=== PATIENT | female | born 1960 | race Caucasian/White ===

== ENCOUNTER 2016-09-01 19:42 | Emergency (ER) | payer OTHER ==
[2016-09-01 20:13] VITALS: TEMP 98.1
--- NOTE | 2016-09-01 21:00 | ED ---
Wound/Laceration HPI - General Chief Complaint: Wound/Laceration Stated Complaint: Finger Laceration Time Seen by Provider: 09/01/16 20:44 Source: patient, RN notes reviewed Mode of arrival: ambulatory Limitations: no limitations - History of Present Illness Initial Comments: 56-year-old female presents emergency department tingling laceration to her right hand index finger. Patient states that she was trying to take hummingbird feeder part states the glass broke. Patient states her tetanus is up-to-date within last 5 years. Patient denies any paresthesias. Patient has good range of motion. - Related Data Home Medications Medication Instructions Recorded Confirmed Estropipate [Ogen 0.625] 0.75 mg PO DAILY 08/31/14 08/31/14 Fexofenadine HCl [Margaret Allergy] 30 mg PO DAILY 08/31/14 08/31/14 Previous Rx's Medication Instructions Recorded Dexamethasone 0.75 mg PO DIRECTED #12 tablet 08/31/14 Ibuprofen [Motrin] 800 mg PO Q6HR PRN #30 tab 08/31/14 Allergies Allergy/AdvReac Type Severity Reaction Status Date / Time No Known Allergies Allergy Verified 08/31/14 20:41 Review of Systems ROS Statement: Those systems with pertinent positive or pertinent negative responses have been documented in the HPI. ROS Other: All systems not noted in ROS Statement are negative. Past Medical History Past Medical History: No Reported History History of Any Multi-Drug Resistant Organisms: None Reported Past Surgical History: Hysterectomy, Orthopedic Surgery Past Psychological History: No Psychological Hx Reported Smoking Status: Never smoker Past Alcohol Use History: Occasional Past Drug Use History: None Reported General Exam Limitations: no limitations General appearance: alert, in no apparent distress Head exam: Present: atraumatic, normocephalic, normal inspection Respiratory exam: Present: normal lung sounds bilaterally. Absent: respiratory distress, wheezes, rales, rhonchi, stridor Cardiovascular Exam: Present: regular rate, normal rhythm, normal heart sounds. Absent: systolic murmur, diastolic murmur, rubs, gallop, clicks Extremities exam: Present: other (Right hand second digit there is a 2 cm laceration on the volar aspect of the index finger neurovascular intact full range of motion) Skin exam: Present: warm, dry Course Vital Signs 09/01/16 20:10 Temperature 98.1 F Pulse Rate 72 Respiratory 16 Rate Blood Pressure 170/84 O2 Sat by Pulse 97 Oximetry Procedures - Laceration Laceration #1 Indication: laceration Site: hand (Right hand second digit) Size (cm): 2 Description: linear Depth: simple, single layer Anesthetic Used: lidocaine 1%, without epi Anesthesia Technique: local infiltration Amount (mls): 4 Pre-repair: wound explored, irrigated extensively, deep structures intact Type of Sutures: nylon Size of Sutures: 4-0 Number of Sutures: 5 Technique: simple, interrupted Patient Tolerated Procedure: well, no complications Medical Decision Making - Medical Decision Making 56-year-old female Finger laceration. Patient was sutured closed patient we discharge. Disposition Clinical Impression: Finger laceration Disposition: HOME SELF-CARE Condition: Stable Instructions: Care For Your Stitches (ED), Finger Laceration (ED) Additional Instructions: Have sutures removed in 10 daysPlease return to the Emergency Department if symptoms worsen or any other concerns. Referrals: Mohinder Weber DO [Primary Care Provider] - 1-2 days Time of Disposition: 21:00
--- NOTE | 2016-09-01 21:30 | XR ---
EXAMINATION TYPE: XR finger RT DATE OF EXAM: 09/01/2016 COMPARISON: NONE HISTORY: Soft tissue laceration of the second digit TECHNIQUE: 3 views of the right second digit were obtained. FINDINGS: Punctate focus of subcutaneous emphysema is seen at the proximal interphalangeal joint at t he volar aspect of the subcutaneous soft tissues of the second digit. There is no evidence of cortica l irregularity, acute fracture, or dislocation. No radiopaque foreign body is appreciated. Soft tissu e swelling is seen at the volar aspect of the proximal phalanx and adjacent to the proximal interphal angeal joint. IMPRESSION: 1. No evidence of cortical irregularity, fracture, or dislocation. 2. Punctate focus of subcutaneous emphysema correlating to the patient's history of laceration near t he proximal interphalangeal joint of the second digit with adjacent soft tissue swelling.
[2016-09-01 21:32] VITALS: BP 136/83; PULSE 71; RESP 18
== END 2016-09-01 21:32 | disposition home or self-care (01) ==
LOC: EC 19:42
DX: S61.210A Laceration without foreign body of right index finger without damage to nail, initial encounter (principal); Z79.899 Other long term (current) drug therapy; W25.XXXA Contact with sharp glass, initial encounter; Y93.89 Activity, other specified
CPT/HCPCS: 12001; 99283

== ENCOUNTER 2017-11-15 13:46 | Emergency (ER) | payer OTHER ==
--- NOTE | 2017-11-15 14:12 | ED ---
General Adult HPI - General Chief complaint: Needlestick/Exposure Stated complaint: exposure-[facility] Time Seen by Provider: 11/15/17 13:59 Source: RN notes reviewed - History of Present Illness Initial comments: 57-year-old female no past medical history presents today for chief complaint of needle stick. 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 She was vacuuming when she saw a lancet on the floor, she bent over to fruit picker lancet with gloves on and was poked, realizing it had been used. It poked through her glove at the tip of the right index finger. Pt contacted her employer who instructed her to come to the emergency department for post exposure testing. pt states that the patient has no known history of infectious disease. Patient denies any recent fever, chills , shortness of breath, chest pain, back pain, abdominal pain, nausea or vomiting , numbness or tingling, dysuria or hematuria, constipation or diarrhea, headaches or visual changes, or any other complaints. - Related Data Home Medications Medication Instructions Recorded Confirmed Estropipate [Ogen 0.625] 0.75 mg PO DAILY 08/31/14 11/15/17 Fexofenadine HCl [Margaret Allergy] 30 mg PO DAILY 08/31/14 11/15/17 Allergies Allergy/AdvReac Type Severity Reaction Status Date / Time No Known Allergies Allergy Verified 11/15/17 15:46 Review of Systems ROS Statement: Those systems with pertinent positive or pertinent negative responses have been documented in the HPI. ROS Other: All systems not noted in ROS Statement are negative. Constitutional: Denies: fever, chills, night sweats ENT: Denies: ear pain, throat pain Respiratory: Denies: cough, dyspnea Cardiovascular: Denies: chest pain, palpitations, dyspnea on exertion Endocrine: Denies: fatigue Gastrointestinal: Denies: abdominal pain, nausea, vomiting Genitourinary: Denies: urgency, dysuria Musculoskeletal: Denies: back pain Skin: Reports: as per HPI. Denies: rash, lesions Past Medical History Past Medical History: No Reported History History of Any Multi-Drug Resistant Organisms: None Reported Past Surgical History: Hysterectomy, Orthopedic Surgery Past Psychological History: No Psychological Hx Reported Smoking Status: Never smoker Past Alcohol Use History: Occasional Past Drug Use History: None Reported General Exam - General Exam Comments Initial Comments: General: The patient is awake and alert, in no distress, and does not appear acutely ill. Eye: Pupils are equal, round and reactive to light, extra-ocular movements are intact. No nystagmus. There is normal conjunctiva bilaterally. No signs of icterus. Ears, nose, mouth and throat: There are moist mucous membranes and no oral lesions. Neck: The neck is supple, there is no tenderness or JVD. Cardiovascular: There is a regular rate and rhythm. No murmur, rub or gallop is appreciated. Respiratory: Lungs are clear to auscultation, respirations are non-labored, breath sounds are equal. No wheezes, stridor, rales, or rhonchi. Gastrointestinal: Soft, non-distended, non-tender abdomen without masses or organomegaly noted. There is no rebound or guarding present. No CVA tenderness. Bowel sounds are unremarkable. Musculoskeletal: Normal ROM, no tenderness. Strength 5/5. Sensation intact. Pulses equal bilaterally 2+. Neurological: A&O x 3. CN II-XII intact, There are no obvious motor or sensory deficits. Coordination appears grossly intact. Speech is normal. Skin: Skin is warm and dry and no rashes. Small puncture right index finger, palmar surface. Psychiatric: Cooperative, appropriate mood & affect, normal judgment. Course Vital Signs 11/15/17 14:01 Temperature 97.1 F L Pulse Rate 84 Respiratory 18 Rate Blood Pressure 143/81 O2 Sat by Pulse 98 Oximetry Medical Decision Making - Medical Decision Making Exposure paperwork filled out by pt and nursing staff. Pt declined ppx treatment at this time. Pt blood was drawn for Hepatitis C, Hepatitis B and HIV. Pt was discharged in stable condition. Disposition Clinical Impression: Needle stick injury of finger Disposition: HOME SELF-CARE Condition: Good Instructions: Needle Stick Injuries (ED) Additional Instructions: Please follow-up with family doctor in the next 2 days of symptoms. Please have source come in for testing if possible Is patient prescribed a controlled substance at d/c from ED?: No Referrals: Mohinder Weber DO [Primary Care Provider] - 1-2 days Time of Disposition: 15:22
[2017-11-15 14:18] VITALS: BP 143/81; PULSE 84; RESP 18; TEMP 97.1
[2017-11-15 20:23] LABS: HIV AB P24 Non-Reactive (Non-Reactive); HIV P24 AG Non-Reactive (Non-Reactive)
[2017-11-15 20:41] LABS: Hepatitis B Surface AB- Quant 3.5 mIU/mL; Hepatitis C IgG Antibody Non-Reactive (Non-Reactive)
== END 2017-11-15 15:46 | disposition home or self-care (01) ==
LOC: EC 13:46
DX: S61.230A Puncture wound without foreign body of right index finger without damage to nail, initial encounter (principal); Z79.899 Other long term (current) drug therapy; Z98.890 Other specified postprocedural states; W46.1XXA Contact with contaminated hypodermic needle, initial encounter; Y93.89 Activity, other specified; Y92.009 Unspecified place in unspecified non-institutional (private) residence as the place of occurrence of the external cause; Y99.0 Civilian activity done for income or pay
CPT/HCPCS: 36415; 86706; 86803; 87390; 99282

== ENCOUNTER → 2018-06-30 | Outpatient (CLI) | payer OTHER ==
[2018-06-30 08:39] LABS: Basophils # (A) 0.1 k/uL (0-0.2); Basophils % (A) 3 %; Eosinophils # (A) 0.3 k/uL (0-0.7); Eosinophils % (A) 8 %; HCT 43.1 % (34.0-46.0); HGB 13.8 gm/dL (11.4-16.0); Lymphocytes % (A) 23 %; MCH 29.1 pg (25.0-35.0); MCHC 31.9 g/dL (31.0-37.0); MCV 91.2 fL (80.0-100.0); Mean Platelet Volume 6.5; Monocytes # (A) 0.3 k/uL (0-1.0); Monocytes % (A) 6 %; Neutrophils # (A) 2.5 k/uL (1.3-7.7); Neutrophils % (A) 58 %; Platelet Count 279 k/uL (150-450); RBC 4.73 m/uL (3.80-5.40); RDW 12.9 % (11.5-15.5); WBC 4.3 k/uL (3.8-10.6)
== END ==
LOC: LABPAT 08:04
PROVIDERS: ATTEND Obstetrics & Gynecology
DX: Z01.818 Encounter for other preprocedural examination (principal); Z01.812 Encounter for preprocedural laboratory examination; Q52.5 Fusion of labia
CPT/HCPCS: 85025; 93005

== ENCOUNTER 2018-07-09 07:57 | Day surgery (SDC) | payer OTHER ==
[2018-07-03 13:01] VITALS: BMI 22.3
--- NOTE | 2018-07-04 11:50 | HP ---
HISTORY AND PHYSICAL H and P for surgery on Monday, July 09, 2018. This is a 58-year-old white female 1, para 1, who presented initially for the complaint of no opening per vagina. She was diagnosed with complete labial fusion, and was started on Estrace cream every night to the perineal body. The patient states since that time, the area is more comfortable, she has no bleeding and no pain. She, however, still does not notice any opening of the vaginal area whatsoever. This problem has been persisting for over a year. REVIEW OF SYSTEMS: Review of systems is otherwise negative. PAST MEDICAL HISTORY: Past medical history is negative. PAST SURGICAL HISTORY: Endometriosis ablation in the past, tubal ligation, section, appendectomy. CURRENT MEDICATIONS: 1. Caltrate with vitamin D daily. 2. Estrace cream vaginally every night. 3. Fish oil and magnesium along with multivitamin and vitamin E supplement daily. ALLERGIES: Allergies include NEOSPORIN, allergic reaction not noted. FAMILY HISTORY: Family history is significant for diabetes and heart issues. REPRODUCTIVE HISTORY: section in 1986, uncomplicated. SOCIAL HISTORY: Patient is a former tobacco smoker in the 1980s. She drinks 3 to 4 cups of coffee a day, social alcohol use only. PHYSICAL EXAMINATION: On exam, this is a pleasant white female who is 5 feet 2 inches, 125 pounds, blood pressure 120/76, BMI 125. The general physical exam is within normal limits. Neck is soft and supple, no thyromegaly, no cervical lymphadenopathy, good dentition. Breasts are bilaterally symmetric to inspection with no skin dimpling, nipple discharge, axillary adenopathy, or discernible lesions or masses. Chest is clear to auscultation in all major anteriorly and posteriorly. Cardiac exam reveals regular rate and rhythm with no murmur, click, or rub. Abdomen is scaphoid, no organosplenomegaly, no CVA tenderness. Active bowel sounds. On pelvic examination, the external genitalia appear normal for age in terms of the labia majora. However, the labia minora are completely fused in the midline with no visual or palpable opening noted. The clitoral madrigal appears normal. The rectal exam reveals good sphincter tone, no foreign bodies or hemorrhoids. There is no unusual inguinal lymphadenopathy. The cervix is unable to be visualized. Rectal exam reveals normal midline uterus, negative adnexa bilaterally. Skin exam reveals no rashes or lesions otherwise. The neurologic and psychiatric examinations are found to be within normal limits. IMPRESSION: Atrophic vaginitis with complete labial fusion. PLAN: Patient has been using the Estrace cream now for several months. The skin appears softer and less uncomfortable, however, there is no opening either to palpation or visualization. We would therefore proceed with surgical opening of the labia and separation. This may be performed with electrocautery on the cutting mode, or potentially with digital separation utilizing examination under anesthesia. All questions have been answered. All risks of surgery including bleeding, infection, postoperative dyspareunia are all discussed. Second opinion is offered and declined. MMODL / IJN: [id number] /
[~2018-07-09 07:57] MED LIST: DEXAMETHASONE SOD PHOSPHATE 10 MG/ML 1 ML VIAL IV ONE; HYDROmorphone 0.5 MG/0.5 ML SYRINGE IVP PRN; LACTATED RINGERS 1,000 ML IV SCH; MIDAZOLAM 2 MG/2 ML VIAL IV PRN; ONDANSETRON 4 MG/2 ML VIAL IVP ONE; SCOPOLAMINE 1.5MG/72HR PATCH TRANSDERM ONE
[2018-07-09] MEDS ORDERED: LACTATED RINGERS 1,000 ML IV ONE (08:13)
[2018-07-09] MEDS ORDERED: LIDOCAINE 1% 20 ML VIAL (10MG/ML) FOR IV START INTRADERMA ONE (08:14)
[2018-07-09] MEDS ORDERED: fentaNYL (PF) 50 MCG/ML 2 ML AMP ONE (09:34)
[2018-07-09] MEDS ORDERED: MIDAZOLAM 2 MG/2 ML VIAL ONE (09:34)
[2018-07-09] MEDS ORDERED: LIDOCAINE 1% INJ 10MG/ML (20 ML MDV) ONE (09:34)
[2018-07-09] MEDS ORDERED: PROPOFOL 10 MG/ML 20 ML VIAL IV ONE (09:34)
[2018-07-09] MEDS ORDERED: SILVER sulfADIAZINE Cream 400 GM 1 APPLIC APPLIC TOPICAL ONE (09:57)
--- NOTE | 2018-07-09 10:02 | P.OP ---
Date of Procedure: 07/09/18 Preoperative Diagnosis: Complete labial fusion Postoperative Diagnosis: Same, resolved Procedure(s) Performed: Separation complete labial fusion (perineoplasty) Anesthesia: [id number] Surgeon: Deborah Casarez Estimated Blood Loss (ml): 0 IV fluids (ml): 300 Urine output (ml): 400 Pathology: none sent Condition: stable Disposition: PACU Description of Procedure: Patient is brought to the operating suite where a general anesthetic is admi nistered. No antibiotics are deemed necessary. The appropriate timeout is performed to assure proper patient and procedural identification. The patient is placed in dorsal lithotomy position. The perineal body is prepped and draped in usual sterile fashion. Sponge rolled finger is IUs bilaterally. Gentle traction is used just beneath the clitoris and a small opening of the complete fusion is noted. With gentle symmetric traction the separation is "open" from 12:00 to 6:00. At this time the urethra is visualized, the bladder is drained for approximately 400 mL of clear yellow urine. Examination under anesthesia now reveals good vaginal length, good introital opening of approximately 2-1/2 cm. The edges of the atrophic thin skin are then bathed with Silvadene cream and a. Pad is placed. All sponge needle and enhancement counts are correct. Patient is brought back to the recovery room in very good condition with stable vital signs including blood pressure 138/71, pulse 62, 98% O2 saturation. She will continue the use of estrogen cream at home, and see me in the office in 2 weeks.
[2018-07-09 10:19] VITALS: TEMP 97.6
[2018-07-09 10:32] VITALS: RESP 16
[2018-07-09 11:21] VITALS: PULSE 65
[2018-07-09 11:22] VITALS: BP 145/89
== END 2018-07-09 11:43 | disposition home or self-care (01) ==
LOC: OR 07:57
PROVIDERS: ATTEND Obstetrics & Gynecology
DX: Q52.5 Fusion of labia (principal); N95.2 Postmenopausal atrophic vaginitis; Z83.3 Family history of diabetes mellitus; Z82.49 Family history of ischemic heart disease and other diseases of the circulatory system; Z87.891 Personal history of nicotine dependence
CPT/HCPCS: 56810; J2250; J1100; J2405; J2001; J3010; J2704

== ENCOUNTER → 2019-02-27 | Outpatient (CLI) | payer OTHER ==
--- NOTE | 2019-02-27 08:55 | CT ---
EXAMINATION TYPE: CT sinus wo con DATE OF EXAM: 02/27/2019 COMPARISON: None HISTORY: Headache, acute sinusitis CT DLP: 615.9 mGycm CONTRAST: None The paranasal sinuses are examined in the axial plane at 2 mm thick sections. Reconstructed images i n the coronal plane were obtained. There is dental amalgam scatter artifact There is a retention cyst within the posterior right maxillary sinus. Partial septation is at the inf erior right maxillary sinus. The ethmoid air cells are clear. The sphenoid sinuses are clear. The frontal sinuses are clear. The septum is evaluated. There is septal deviation to the left. There is an ostea within the anterio r septum. Prior uncinectomies are present. Partial ethmoidectomies are present. IMPRESSIONS: 1. Left septal deviation. 2. Postsurgical changes. 3. Small retention cyst posterior inferior right maxillary sinus.
--- NOTE | 2019-02-27 08:57 | CT ---
EXAMINATION TYPE: CT brain wo con DATE OF EXAM: 02/27/2019 COMPARISON: 11/10/2011 INDICATION: Headache DLP: 1670.1 mGycm, Automated exposure control for dose reduction was used. CONTRAST: None CT of the brain is performed utilizing 3 mm thick sections through the posterior fossa and 3 mm thick sections through the remaining calvarium. Study is performed within 24 hours of arrival to the hosp ital. No abnormal hyperdensity is present to suggest an acute intracranial hemorrhage. No mass lesion is evident. No acute infarcts are evident. Ventricles and sulci are appropriate for the patient age. Paranasal sinuses and mastoid air cells within the [id number] are clear. IMPRESSIONS: 1. No acute intracranial process.
== END | disposition home or self-care (01) ==
LOC: RADCTMAIN 07:45
PROVIDERS: ATTEND Physician Assistant
DX: J34.2 Deviated nasal septum (principal); J34.1 Cyst and mucocele of nose and nasal sinus; R51 Headache; Z98.890 Other specified postprocedural states
CPT/HCPCS: 70450; 70486

== ENCOUNTER 2020-06-16 12:44 | Emergency (ER) | payer OTHER ==
[2020-06-16] MEDS ORDERED: DIAZEPAM 5 MG/ML 2 ML INJ IM STA (13:35)
--- NOTE | 2020-06-16 13:37 | ED ---
Back Pain HPI - General Chief Complaint: Back Pain/Injury Stated Complaint: [facility] - back pain Time Seen by Provider: 06/16/20 13:05 Source: patient, RN notes reviewed Mode of arrival: ambulatory Limitations: no limitations - History of Present Illness Initial Comments: This a 59-year-old female presents emergency Department with chief complaint of back strain. 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 She states her she felt her back tighten up states she has pain with any movement she has no chest pain or shortness of breath. He states that she's had some back issues in the past states is usually her low back. No abdominal pain no bowel bladder incontinence or retention no saddle anesthesias. - Related Data Home Medications Medication Instructions Recorded Confirmed Estradiol Cream [Estrace Cream 1 applic VAGINAL SUWE 07/03/18 06/16/20 0.01%] Atorvastatin [Lipitor] 10 mg PO HS 06/16/20 06/16/20 Samir/D3/Mag11/Zinc/Stain Remover/Rafa/Bor 1 tab PO DAILY 06/16/20 06/16/20 [Caltrate 600+D Plus Tablet] Cetirizine HCl [Zyrtec] 10 mg PO HS 06/16/20 06/16/20 Magnesium 200 mg PO DAILY 06/16/20 06/16/20 [place]-3 Fatty Acids/Fish Oil [Fish 1 cap PO DAILY 06/16/20 06/16/20 Oil 1,000 mg Softgel] Vitamin E 400 unit PO DAILY 06/16/20 06/16/20 Previous Rx's Medication Instructions Recorded Ibuprofen [Motrin] 600 mg PO Q8HR PRN #20 tab 06/16/20 methocarbamoL [Robaxin] 500 mg PO TID PRN #15 tab 06/16/20 Allergies Allergy/AdvReac Type Severity Reaction Status Date / Time bacitracin Allergy Swelling Verified 06/16/20 13:52 [From Neosporin ([id number])] cephalexin [From Keflex] Allergy Rash/Hives Verified 06/16/20 13:52 neomycin Allergy Swelling Verified 06/16/20 13:52 [From Neosporin ([id number])] polymyxin B Allergy Swelling Verified 06/16/20 13:52 [From Neosporin ([id number])] Review of Systems ROS Statement: Those systems with pertinent positive or pertinent negative responses have been documented in the HPI. ROS Other: All systems not noted in ROS Statement are negative. Past Medical History Past Medical History: No Reported History History of Any Multi-Drug Resistant Organisms: None Reported Past Surgical History: Hysterectomy, Orthopedic Surgery Additional Past Surgical History / Comment(s): right finger surgery Past Psychological History: No Psychological Hx Reported Smoking Status: Never smoker Past Alcohol Use History: Occasional Past Drug Use History: None Reported General Exam Limitations: no limitations General appearance: alert, in no apparent distress Head exam: Present: atraumatic, normocephalic, normal inspection ENT exam: Present: normal exam, normal oropharynx, mucous membranes moist, TM's normal bilaterally Neck exam: Present: normal inspection, full ROM. Absent: tenderness, meningismus, lymphadenopathy Respiratory exam: Present: normal lung sounds bilaterally, decreased breath sounds. Absent: respiratory distress, wheezes, rales, rhonchi, stridor Cardiovascular Exam: Present: regular rate, normal rhythm, normal heart sounds. Absent: systolic murmur, diastolic murmur, rubs, gallop, clicks Extremities exam: Present: normal inspection, full ROM, normal capillary refill, other (Lower and upper extremity strength equal bilaterally neurovascular intact). Absent: tenderness, pedal edema, joint swelling, calf tenderness Back exam: Present: full ROM, tenderness, muscle spasm, paraspinal tenderness. Absent: normal inspection, CVA tenderness (R), CVA tenderness (L), vertebral tenderness Neurological exam: Present: alert, oriented X3, reflexes normal. Absent: motor sensory deficit Skin exam: Present: warm, dry, intact, normal color. Absent: rash Course Vital Signs 06/16/20 12:51 Temperature 98.5 F Pulse Rate 68 Respiratory 20 Rate Blood Pressure 153/85 O2 Sat by Pulse 95 Oximetry Medical Decision Making - Medical Decision Making Patient reevaluated and updated on x-ray results. Patient is improved after vomiting. Patient has a muscle spasms in her back from thoracic strain. Patient discharged in stable condition return parameters were discussed. Patient has no chest pain no red flag symptoms. Disposition Clinical Impression: Thoracic back pain, Strain of thoracic back region Disposition: HOME SELF-CARE Condition: Stable Instructions (If sedation given, give patient instructions): Thoracic Back Strain (ED) Additional Instructions: Please return to the Emergency Department if symptoms worsen or any other concerns. Prescriptions: Ibuprofen [Motrin] 600 mg PO Q8HR PRN #20 tab PRN Reason: Pain methocarbamoL [Robaxin] 500 mg PO TID PRN #15 tab PRN Reason: muscle spasms Is patient prescribed a controlled substance at d/c from ED?: No Referrals: Mohinder Weber DO [Primary Care Provider] - 1-2 days Time of Disposition: 14:30
--- NOTE | 2020-06-16 14:23 | XR ---
EXAMINATION TYPE: XR thoracic spine 2V DATE OF EXAM: 06/16/2020 COMPARISON: None HISTORY: Pain TECHNIQUE: 3 view thoracic spine FINDINGS: There are 12 thoracic type vertebral bodies. Pedicles are intact. There is mild disc space narrowing within the mid and upper thoracic spine. Mild scoliosis present with convexity to the left centered at approximately T10. This could be related to patient positioning or muscle spasm. Vertebra l body heights are preserved. IMPRESSION: 1. Mild scoliosis which could be related to muscle spasm. 2. Mild degenerative disc change. 3. No acute osseous abnormality.
[2020-06-16] MEDS ORDERED: ACET/COD 300 MG/30 MG STARTER PACK 6 TAB BTL PO STA (14:30)
[2020-06-16 14:54] VITALS: BP 167/89; PULSE 72; RESP 18; TEMP 98.1
== END 2020-06-16 14:54 | disposition home or self-care (01) ==
LOC: EC 12:44
DX: S29.012A Strain of muscle and tendon of back wall of thorax, initial encounter (principal); X58.XXXA Exposure to other specified factors, initial encounter; Z90.710 Acquired absence of both cervix and uterus
CPT/HCPCS: 72070; 99283; 96372; J3360

== ENCOUNTER → 2020-06-19 | Outpatient (CLI) | payer OTHER ==
--- NOTE | 2020-06-19 17:16 | XR ---
EXAMINATION TYPE: XR lumbar spine 2 or 3V DATE OF EXAM: 06/19/2020 COMPARISON: NONE HISTORY: Back pain TECHNIQUE: 3 views FINDINGS: Lumbar vertebra have normal alignment. There is disc space narrowing at L4-5 and L5-S1 with mild spurring. The posterior elements are intact. Sacroiliac joints are intact. There is no compress ion fracture. IMPRESSION: Spondylotic changes in the lower lumbar spine. No fracture seen.
== END ==
LOC: RADXRMAIN 16:49
PROVIDERS: ATTEND Emergency Medicine
DX: M47.816 Spondylosis without myelopathy or radiculopathy, lumbar region (principal)
CPT/HCPCS: 72100

== ENCOUNTER → 2020-07-13 | Outpatient (CLI) | payer OTHER ==
--- NOTE | 2020-07-13 10:23 | XR ---
EXAMINATION TYPE: XR chest 2V, XR ribs RT DATE OF EXAM: 07/13/2020 CLINICAL HISTORY: Chest and right-sided rib pain after injury one month ago. TECHNIQUE: Frontal and lateral views of the chest are obtained. A frontal and oblique images right-s ided ribs. COMPARISON: None FINDINGS: There is no focal air space opacity, pleural effusion, or pneumothorax seen. The cardiac silhouette size is within normal limits. The osseous structures are intact. No acute displaced right-sided rib fracture is seen. Overlying right breast implant incidentally note d. IMPRESSION: No acute cardiopulmonary process. No acute displaced right-sided rib fracture.
== END | disposition home or self-care (01) ==
LOC: RADXRMAIN 09:44
PROVIDERS: ATTEND Emergency Medicine
DX: S29.002D Unspecified injury of muscle and tendon of back wall of thorax, subsequent encounter (principal)
CPT/HCPCS: 71046

== ENCOUNTER → 2021-01-25 | Outpatient (CLI) | payer BC ==
--- NOTE | 2021-01-25 13:54 | MR ---
EXAMINATION TYPE: MR cervical spine wo con DATE OF EXAM: 01/25/2021 12:57 PM COMPARISON: NONE HISTORY: Neck pain into left arm/fingers Multiplanar MultiSpin echo imaging of the cervical spine was performed. Comparison: none C2-C3: No evidence for degenerative disc disease. No disc bulge/herniation or protrusion. No Canal stenosis. Foramina are patent bilaterally. C3-C4: Mild decreased signal and loss of height compatible with degenerative disc disease. Posterior disc bulge with mild effacement ventral thecal sac. No evidence for disc herniation, protrusion or ce ntral stenosis. Mild right foraminal encroachment. C4-C5: Mild decreased signal and loss of height compatible with degenerative disc disease. Posterior disc bulge with mild effacement ventral thecal sac. No evidence for disc herniation, protrusion or ce ntral stenosis. Mild left foraminal encroachment. C5-C6: Mild decreased signal and loss of height compatible with degenerative disc disease. Posterior disc bulge with mild effacement ventral thecal sac. No evidence for disc herniation, protrusion or ce ntral stenosis. No significant foraminal encroachment. C6-C7: Mild decreased signal and loss of height compatible with degenerative disc disease. Posterior disc bulge with mild effacement ventral thecal sac. No evidence for disc herniation, protrusion or ce ntral stenosis. No significant foraminal encroachment. C7-T1: No evidence for degenerative disc disease. No disc bulge/herniation or protrusion. No Canal stenosis. Foramina are patent bilaterally. Cervical segments are intact. There is normal alignment. Cervical spinal cord is of normal signal. Craniovertebral junction relationships are within normal limits. IMPRESSION: 1. Multilevel degenerative disc disease and disc bulging.
== END | disposition home or self-care (01) ==
LOC: RADMRIMAIN 12:19
PROVIDERS: ATTEND Orthopaedic Surgery
DX: M50.323 Other cervical disc degeneration at C6-C7 level (principal); M50.223 Other cervical disc displacement at C6-C7 level
CPT/HCPCS: 72141

== ENCOUNTER 2021-03-02 09:49 | Day surgery (SDC) | payer BC ==
[2021-02-23 16:02] VITALS: BMI 25.0
[2021-03-02] MEDS ORDERED: LACTATED RINGERS 1,000 ML IV SCH (10:15)
[2021-03-02 10:24] VITALS: RESP 16; TEMP 98.8
[2021-03-02] MEDS ORDERED: methylPREDNISolone ACETATE 40 MG/ML 1 ML VIAL ONE (10:24)
[2021-03-02] MEDS ORDERED: IOPAMIDOL M200 10 ML VIAL ONE (10:24)
--- NOTE | 2021-03-02 10:49 | P.PCN ---
Date of Procedure: 03/02/21 Procedure(s) Performed: PREOPERATIVE DIAGNOSIS: 1- Thoracic Herniated Disc Diseases 2-thoracic spinal stenosis POSTOPERATIVE DIAGNOSIS: Same as preop diagnosis. PROCEDURE 1- Thoracic epidural steroid injection under fluoroscopic guidance at the T8-9 level. ( Right Paramedial ) (Fluoroscopy imaging was available in radiology department) 2. Thoracic epidurogram. ANESTHESIA: Local with 1% lidocaine 3 ml only EBL: Minimal PROCEDURE INDICATION: The patient with low back pain and radiculitis symptoms unresponsive to conservative treatment. Fluoroscopy was used to optimize visualization of the needle placement and to maximize safety. PROCEDURE DESCRIPTION / TECHNIQUE: The patient was seen and identified in the preoperative area. Risks, benefits, complications including but not limited to infections ,bleeding ,allergic reaction to the medications ,nerve damage and not complete pain releife , and alternatives were discussed with the patient. The patient agreed to proceed with the procedure and signed the consent., and vital signs were stable. Patient was taken to the OR and time out was completed. The patient was placed in the prone position on procedure table and a pillow was placed under the abdomen to reduce lumbar lordosis. The lumbosacral area was prepped and draped in the usual sterile fashion.ere closely monitored during the procedure.. Vital signs was monitered during the entire procedure. Using anterior-posterior fluoroscopy, the T8-9 interlaminar space was identified and the skin over this site was marked and then infiltrated with 1% lidocaine subcutaneously. Subsequently, a 20-gauge Tuohy epidural needle was inserted and advanced toward the epidural space using the ``Loss of resistance technique and guided by AP and lateral fluoroscopy. The correct needle position in the epidural space was verified with the injection of 2 mL of the water soluble contrast dye Isovue 200 contrast and observing an excellent epidurogram with the epidural spread of the dye, after negative aspiration for blood and CSF and in the absence of paresthesias. Again after negative aspiration, a 6 ml mixture containing 80 mg of Depo-medrol , and 2 ml of preservative free Normal Saline, and 2 ml of preservative free lidocaine 1% solution was injected and a washout of epidurogram was seen. Needle was withdrawn intact, skin was cleansed, and bandages were applied. COMPLICATIONS: None DISPOSITION / PLANS: The patient was placed in a supine position and transferred to the recovery area in a stable condition for observation. There was no evidence of lower extremity motor or sensory deficit after the procedure. Patient was discharged from the recovery room after meeting discharge criteria. Home discharge instructions were given to the patient by the staff. The patient was reexamined prior to discharge. The patient will schedule a follow up in the clinic in 2-4 weeks.
[2021-03-02 10:56] VITALS: PULSE 67
[2021-03-02 11:11] VITALS: BP 154/87
--- NOTE | 2021-03-02 16:30 | FL ---
Fluoroscopy INDICATION: Pain FINDINGS: Images obtained: 1. IMPRESSIONS: 1. Documentation of fluoroscopy.
== END 2021-03-02 11:12 | disposition home or self-care (01) ==
LOC: ORPAIN 09:49
PROVIDERS: ATTEND Specialist
DX: M51.24 Other intervertebral disc displacement, thoracic region (principal); M48.04 Spinal stenosis, thoracic region
CPT/HCPCS: 62321; J1030; Q9966

== ENCOUNTER → 2021-04-14 | Outpatient (CLI) | payer BC ==
--- NOTE | 2021-04-15 03:03 | MR ---
EXAMINATION TYPE: MR tspine/lspine wo/w con DATE OF EXAM: 04/14/2021 COMPARISON: 08/24/2020 HISTORY: Middle/lower back pain, RLE radiculopathy after heavy lifting. CONTRAST: Standard multiplanar, multisequence MRI departmental protocol images were obtained without contrast a nd with 6 mL intravenous Gadavist gadolinium contrast. Images of the thoracic and lumbar spine obtained without and with IV contrast. Thoracic and lumbar vertebra have normal alignment. There is no compression fracture. There is mild n arrowing at L4-5 disc. There is no thoracic paraspinal mass. There is no lumbar paraspinal mass. The posterior elements are intact. There is mild narrowing at T8-9 disc space. There is minimal posterior disc bulging at T7-8 and T8-9 without significant impingement on the spinal canal. Thoracic spinal c ord has normal signal pattern. There is no edema. Cervical spinal cord appears normal. There is no ce rvical spinal stenosis. At T6-7 on the right side there is posterior disc bulging and spur formation without significant spinal stenosis. The lumbar neural foramina are fairly well-maintained. The sacro iliac joints appear intact. There is no evidence of pathologic enhancement in the thoracic and lumbar spine. There is 2 cm sacral cyst at the S2-3 level. There is mild posterior disc bulging at L4-5 and L3-4 without significant impingement on the spinal canal. There is also mild disc bulging at L1-2 po steriorly. IMPRESSION: Spondylotic changes as above with multiple levels of disc bulging. No spinal stenosis. No fracture. D isc bulging and herniation at T6-7 is improved compared to the exam on the right side. Lumbar spine a ppears unchanged compared to old exam.
== END | disposition home or self-care (01) ==
LOC: RADMRIMAIN 20:42
PROVIDERS: ATTEND Orthopaedic Surgery
DX: M51.14 Intervertebral disc disorders with radiculopathy, thoracic region (principal); M51.16 Intervertebral disc disorders with radiculopathy, lumbar region; M47.24 Other spondylosis with radiculopathy, thoracic region
CPT/HCPCS: 72157; 72158; A9585

== ENCOUNTER → 2021-08-27 | Outpatient (CLI) | payer BC ==
--- NOTE | 2021-08-27 09:19 | MM ---
Reason for Exam: Additional evaluation requested from abnormal screening. Last screening mammogram was performed less than 1 month ago. Patient History: Menarche at age 11. Left ovary removed at age 34. Right ovary removed at age 34. Hysterectomy at age 28. Postmenopausal. Patient used Estrogen for 4 years. 2000, Bilateral Implants. Risk Values: Salome 5 year model risk: 1.1%. NCI Lifetime model risk: 4.9%. Film Views: Bilateral spot compression CC views were taken. Bilateral spot compression MLO views were taken. Bilateral LM views were taken. Prior Study Comparison: 07/05/2018 Bilateral MG 3D screen mammo imp/cad - 2, [facility]. 09/30/2019 Bilateral MG screening mammo w CAD - 2, Unknown. 08/23/2021 Bilateral MG screening mammo implant/CAD, [facility]. Tissue Density: The breast tissue is heterogeneously dense. This may lower the sensitivity of mammography. Findings: Analyzed By CAD. No distinct new lesion persists in either breast on additional views provided. Overall Assessment: Negative, BI-RAD 1 Management: Screening Mammogram of both breasts in 1 year. A clinical breast exam by your physician is recommended on an annual basis and results should be correlated with mammographic findings. This exam should not preclude additional follow-up of suspicious palpable abnormalities. Results were given to the patient verbally at the time of exam. Electronically signed and approved by: Blair Alves M.D.
== END | disposition home or self-care (01) ==
LOC: RADMAMWWP 08:42
PROVIDERS: ATTEND Obstetrics & Gynecology
DX: R92.8 Other abnormal and inconclusive findings on diagnostic imaging of breast (principal); Z78.0 Asymptomatic menopausal state; Z90.721 Acquired absence of ovaries, unilateral
CPT/HCPCS: 77066

== ENCOUNTER → 2021-09-08 | Outpatient (CLI) | payer BC ==
--- NOTE | 2021-09-10 13:22 | CT ---
EXAMINATION TYPE: CT thor lumbar spine wo con DATE OF EXAM: 09/08/2021 COMPARISON: None HISTORY: upper to middle back pain CT DLP: 1545 mGycm Automated exposure control for dose reduction was used. FINDINGS: The thoracic and lumbar vertebral segments are normal in height and alignment and there is no fractur e or subluxation. There is mild degenerative disc disease mid and lower thoracic spine and lower lumbar spine were ther e is mild disc space narrowing and spondylosis. There are no large thoracic or lumbar disc herniation s. There is mild facet arthropathy in the lower lumbar spine. There is no bony neural foraminal encroachment. There is mild spinal stenosis at the L3-4 and L4-5 levels. The paraspinal soft tissues are unremarkable IMPRESSION: 1. Mild spinal stenosis at the L3-4 and L4-5 levels. 2. No fracture or subluxation of the thoracic or lumbar spine. 3. Mild degenerative disc disease in the mid lower thoracic spine and lower lumbar spine
== END | disposition home or self-care (01) ==
LOC: RADCTMAIN 15:00
PROVIDERS: ATTEND Orthopaedic Surgery
DX: M48.061 Spinal stenosis, lumbar region without neurogenic claudication (principal); M51.36 Other intervertebral disc degeneration, lumbar region; M51.34 Other intervertebral disc degeneration, thoracic region
CPT/HCPCS: 72128; 72131

== ENCOUNTER → 2021-10-06 | Outpatient (CLI) | payer BC ==
[2021-10-06 08:21] VITALS: BP 145/84; PULSE 78; RESP 18; TEMP 98.4
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
== END ==
LOC: PNWHC3 07:38
PROVIDERS: ATTEND Specialist
DX: M51.16 Intervertebral disc disorders with radiculopathy, lumbar region (principal); M48.061 Spinal stenosis, lumbar region without neurogenic claudication; M51.34 Other intervertebral disc degeneration, thoracic region; M19.90 Unspecified osteoarthritis, unspecified site; E78.5 Hyperlipidemia, unspecified; Z88.2 Allergy status to sulfonamides; Z88.1 Allergy status to other antibiotic agents
CPT/HCPCS: 99211

== ENCOUNTER 2021-11-11 06:53 | Day surgery (SDC) | payer BC ==
[2021-11-09 15:59] VITALS: BMI 24.7
[~2021-11-11 06:53] MED LIST changes: -DEXAMETHASONE SOD PHOSPHATE 10 MG/ML 1 ML VIAL IV ONE; -HYDROmorphone 0.5 MG/0.5 ML SYRINGE IVP PRN; +LIDOCAINE 1% (10MG/ML) FOR IV START INTRADERMA PRN; -MIDAZOLAM 2 MG/2 ML VIAL IV PRN; -ONDANSETRON 4 MG/2 ML VIAL IVP ONE; -SCOPOLAMINE 1.5MG/72HR PATCH TRANSDERM ONE
[2021-11-11 07:13] VITALS: TEMP 98.2
[2021-11-11] MEDS ORDERED: fentaNYL (PF) 50 MCG/ML 2 ML AMP ONE (08:33)
[2021-11-11] MEDS ORDERED: MIDAZOLAM 2 MG/2 ML VIAL ONE (08:33)
[2021-11-11] MEDS ORDERED: methylPREDNISolone ACETATE 80 MG/ML 1 ML VIAL ONE (08:33)
[2021-11-11] MEDS ORDERED: IOPAMIDOL M200 10 ML VIAL ONE (08:33)
--- NOTE | 2021-11-11 08:43 | P.PCN ---
Date of Procedure: 11/11/21 Procedure(s) Performed: PREOPERATIVE DIAGNOSIS: 1- Lumbar Degenerative Disc Diseases 2-Lumbar spinal stenosis POSTOPERATIVE DIAGNOSIS: Same as preop diagnosis. PROCEDURE 1. Lumbar epidural steroid injection under fluoroscopic guidance at the L4-5 level. (Fluoroscopy imaging was available in radiology department) 2. Lumbar epidurogram. ANESTHESIA: moderate sedation with intravenous Versed 2 mg ,and fentanyle 100 Mcg Sedation start time : 0 835 Sedation end time : 0 840 EBL: Minimal PROCEDURE INDICATION: The patient with low back pain and radiculitis symptoms unresponsive to conservative treatment. Fluoroscopy was used to optimize visualization of the needle placement and to maximize safety. PROCEDURE DESCRIPTION / TECHNIQUE: The patient was seen and identified in the preoperative area. Risks, benefits, complications including but not limited to infections ,bleeding ,allergic reaction to the medications ,nerve damage and not complete pain releife , and alternatives were discussed with the patient. The patient agreed to proceed with the procedure and signed the consent. IV was started, and vital signs were stable. Patient was taken to the OR and time out was completed. The patient was placed in the prone position on procedure table and a pillow was placed under the abdomen to reduce lumbar lordosis. The lumbosacral area was prepped and draped in the usual sterile fashion.ere closely monitored during the procedure. Conscious sedation was used during the procedure to decrease patients anxiety. Vital signs was monitered during the entire procedure. Using anterior-posterior fluoroscopy, the L4-5 interlaminar space was identified and the skin over this site was marked and then infiltrated with 1% lidocaine subcutaneously. Subsequently, a 20-gauge Tuohy epidural needle was inserted and advanced toward the epidural space using the ``Loss of resistance technique and guided by AP and lateral fluoroscopy. The correct needle position in the epidural space was verified with the injection of 2 mL of the water soluble contrast dye Isovue 200 contrast and observing an excellent epidurogram with the epidural spread of the dye, after negative aspiration for blood and CSF and in the absence of paresthesias. Again after negative aspiration, a 6 ml mixture containing 80 mg of Depo-medrol , and 2 ml of preservative free Normal Saline, and 2 ml of preservative free lidocaine 1% solution was injected and a washout of epidurogram was seen. Needle was withdrawn intact, skin was cleansed, and bandages were applied. COMPLICATIONS: None DISPOSITION / PLANS: The patient was placed in a supine position and transferred to the recovery area in a stable condition for observation. There was no evidence of lower extremity motor or sensory deficit after the procedure. Patient was discharged from the recovery room after meeting discharge criteria. Home discharge instructions were given to the patient by the staff. The patient was reexamined prior to discharge. The patient will schedule a follow up in the clinic in 2-4 weeks.
[2021-11-11] MEDS ORDERED: IV FLUID CONTINUATION 1,000 ML IV ONE (08:45)
[2021-11-11 09:14] VITALS: BP 129/79; PULSE 63; RESP 15
--- NOTE | 2021-11-11 09:47 | FL ---
Intraoperative/procedural fluoroscopic services were provided. Total fluoroscopy time is 3 seconds wi th a total of 1 submitted images to PACS. Please see the operative/procedural note for further detail s.
== END 2021-11-11 09:35 | disposition home or self-care (01) ==
LOC: ORPAIN 06:53
PROVIDERS: ATTEND Specialist
DX: M51.16 Intervertebral disc disorders with radiculopathy, lumbar region (principal); M48.061 Spinal stenosis, lumbar region without neurogenic claudication; Z83.3 Family history of diabetes mellitus; Z82.49 Family history of ischemic heart disease and other diseases of the circulatory system
CPT/HCPCS: 62323; J2250; J1040; J3010; Q9966

== ENCOUNTER 2021-12-21 06:58 | Day surgery (SDC) | payer BC ==
[2021-12-21] MEDS ORDERED: LACTATED RINGERS 1,000 ML IV SCH ×2 (07:15)
[2021-12-21 07:20] VITALS: TEMP 98.1
[2021-12-21] MEDS ORDERED: fentaNYL (PF) 50 MCG/ML 2 ML AMP ONE (07:45)
[2021-12-21] MEDS ORDERED: MIDAZOLAM 2 MG/2 ML VIAL ONE (07:45)
[2021-12-21] MEDS ORDERED: methylPREDNISolone ACETATE 80 MG/ML 1 ML VIAL ONE (07:45)
[2021-12-21] MEDS ORDERED: IOPAMIDOL M200 10 ML VIAL ONE (07:45)
--- NOTE | 2021-12-21 07:55 | P.PCN ---
Date of Procedure: 12/21/21 Description of Procedure: Procedure: 1. L4-L5 Epidural steroid injection under fluoroscopic guidance 2. Lumbar epidurogram PREOPERATIVE DIAGNOSIS: Lumbar degenerative disc disease, and Lumbar radiculopathy. POSTOPERATIVE DIAGNOSIS: Lumbar degenerative disc disease, and Lumbar radic ulopathy. SURGEON: Adolfo Penaloza ANESTHESIA: Local with 1% lidocaine, and IV sedation: Versed 2 mg, and fentanyl 100 g Sedation supervision start time : 0745 sedation Supervision end time: 0752 EBL: None. Specimen removed: None Fluoroscopic image: saved to electronic medical records PROCEDURE INDICATION: The patient had history of Lumbar degenerative disc disease and Lumbar radiculopathy. Failed to conservative therapy. Presented for epidural steroid injection. PROCEDURE DESCRIPTION: The patient was seen and identified in the preoperative area. Risks, benefits, complications, and alternatives were discussed with the patient. The patient agreed to proceed with the procedure and signed the consent. IV was started, and vital signs were stable. Patient was taken to the procedure area, and time out was completed. The patient was placed in the prone position on procedure table and a pillow was placed under the abdomen to reduce lumbar lordosis. The lumbosacral area was prepped and draped in the usual sterile fashion. Critical pause was taken. Vital signs were closely monitored during the procedure. Using anterior-posterior fluoroscopy, the L4-L5 interlaminar space was identified, and skin and deeper tissues were localized with 1% lidocaine. Using anterior-posterior fluoroscopy, lateral fluoroscopy, and [id number]-[id number] technique, a 20 gauge 3.5 Tuohy epidural needle entered the epidural space. After negative aspiration of CSF and blood with no paresthesias, 1 ml of [id number] contrast dye was injected and an excellent epidurogram was seen. Again after negative aspiration of CSF and blood with no paresthesias, 8 mL of block solution was injected into the epidural space. Block solution contained 80 mg of Depo-Medrol, and 7 mL of preservative-free normal saline. Needle was withdrawn intact, skin was cleansed, and bandages were applied. COMPLICATIONS: None. DISPOSITION / PLANS: The patient was placed in a supine position and transferred to the recovery area in a stable condition for observation. Patient was discharged from the recovery room after meeting discharge criteria. Home discharge instructions given to the patient by the staff. The patient was reexamined prior to discharge. The patient will schedule a follow up in the clinic in 4 weeks.
[2021-12-21] MEDS ORDERED: LACTATED RINGERS 1,000 ML IV ONE (07:58)
[2021-12-21 08:04] VITALS: RESP 16
[2021-12-21 08:15] VITALS: BP 131/71; PULSE 71
--- NOTE | 2021-12-21 08:55 | FL ---
Intraoperative/procedural fluoroscopic services were provided. Total fluoroscopy time is 5 seconds wi th a total of 2 submitted images to PACS. Please see the operative/procedural note for further detail s.
== END 2021-12-21 08:31 | disposition home or self-care (01) ==
LOC: ORPAIN 06:58
PROVIDERS: ATTEND Specialist
DX: M51.16 Intervertebral disc disorders with radiculopathy, lumbar region (principal); Z88.1 Allergy status to other antibiotic agents; Z88.8 Allergy status to other drugs, medicaments and biological substances; E78.00 Pure hypercholesterolemia, unspecified; M19.90 Unspecified osteoarthritis, unspecified site
CPT/HCPCS: 62323; J2250; J1040; J3010; Q9966

== ENCOUNTER 2021-12-21 17:59 | Emergency (ER) | payer BC ==
[2021-12-21 18:48] VITALS: RESP 18; TEMP 97.7
[2021-12-21] MEDS ORDERED: ONDANSETRON 4 MG/2 ML VIAL IVP STA (20:26)
[2021-12-21] MEDS ORDERED: SODIUM CHLORIDE 0.9% 1,000 ML IV STA (20:26)
[2021-12-21] MEDS ORDERED: MORPHINE SULFATE 4 MG/ML SYRINGE IV STA ×2 (20:26→22:23)
[2021-12-21] MEDS ORDERED: KETOROLAC 15 MG/ML 1 ML VIAL IVP STA (20:26)
--- NOTE | 2021-12-21 20:31 | ED ---
Headache HPI - General Chief Complaint: Back Pain/Injury Stated Complaint: vomiting Time Seen by Provider: 12/21/21 20:09 Source: RN notes reviewed Mode of arrival: ambulatory Limitations: no limitations - History of Present Illness Initial Comments: This is a pleasant 61-year-old female who has chronic back pain. Patient had a epidural injection with corticosteroids in the L4-L5 interspace this morning about 7 AM by interventional radiology. Patient went home but now has developed a headache which is with sitting and standing position. Patient also has associated nausea. Patient denying any focal deficits. No vision or hearing changes. No headache, no fever or chills, no changes in vision or hearing, no sore throat or difficulty with speech, no neck pain, no chest pain or shortness of breath, no abdominal pain, no changes in urination or bowel movements, no numbness or tingling, no extremity pain, no skin rashes or lesions. Past medical, surgical, social, and family history reviewed. MD Complaint: headache - Related Data Home Medications Medication Instructions Recorded Confirmed Cyclobenzaprine [Flexeril] 10 mg PO DAILY PRN 02/23/21 12/21/21 Atorvastatin [Lipitor] 10 mg PO HS 11/09/21 12/21/21 traMADol HCL 50 mg PO HS PRN 11/09/21 12/21/21 Magnesium 500 mg PO DAILY 12/21/21 12/21/21 Previous Rx's Medication Instructions Recorded Ibuprofen [Motrin] 600 mg PO Q8HR PRN #20 tab 06/16/20 Allergies Allergy/AdvReac Type Severity Reaction Status Date / Time bacitracin Allergy Swelling Verified 12/21/21 18:48 [From Neosporin ([id number])] cephalexin [From Keflex] Allergy Rash/Hives Verified 12/21/21 18:48 neomycin Allergy Swelling Verified 12/21/21 18:48 [From Neosporin ([id number])] polymyxin B Allergy Swelling Verified 12/21/21 18:48 [From Neosporin ([id number])] Review of Systems ROS Statement: Those systems with pertinent positive or pertinent negative responses have been documented in the HPI. ROS Other: All systems not noted in ROS Statement are negative. Past Medical History Past Medical History: No Reported History Additional Past Medical History / Comment(s): Work related injury resulting in herniated disc in back. History of Any Multi-Drug Resistant Organisms: None Reported Past Surgical History: Appendectomy, Hysterectomy, Orthopedic Surgery, Tubal Ligation Additional Past Surgical History / Comment(s): Right finger surgery, radial tunnel syndrome right arm, pain clinic procedure. Past Anesthesia/Blood Transfusion Reactions: Postoperative Nausea & Vomiting (PONV) Past Psychological History: No Psychological Hx Reported Smoking Status: Never smoker Past Alcohol Use History: None Reported Past Drug Use History: None Reported - Past Family History Mother Family Medical History: No Reported History General Exam - General Exam Comments Initial Comments: Patient mild distress. Does not appear to be ill or toxic. Limitations: no limitations General appearance: alert, in distress Head exam: Present: atraumatic, normocephalic, normal inspection Eye exam: Present: normal appearance, PERRL, EOMI. Absent: scleral icterus, conjunctival injection, periorbital swelling ENT exam: Present: normal exam, mucous membranes moist, TM's normal bilaterally, normal external ear exam Neck exam: Present: normal inspection, full ROM. Absent: tenderness, meningismus, lymphadenopathy Respiratory exam: Present: normal lung sounds bilaterally. Absent: respiratory distress, wheezes, rales, rhonchi, stridor, chest wall tenderness, accessory muscle use, decreased breath sounds, prolonged expiratory Cardiovascular Exam: Present: regular rate, normal rhythm, normal heart sounds. Absent: systolic murmur, diastolic murmur, rubs, gallop, clicks GI/Abdominal exam: Present: soft, normal bowel sounds. Absent: distended, tenderness, guarding, rebound, rigid Extremities exam: Present: normal inspection, full ROM, normal capillary refill. Absent: tenderness, pedal edema, joint swelling, calf tenderness Back exam: Present: normal inspection Neurological exam: Present: alert, oriented X3, CN II-XII intact, normal gait, other (No focal neurologic deficits.). Absent: altered, abnormal gait, motor sensory deficit, reflexes normal Psychiatric exam: Present: normal affect, normal mood Skin exam: Present: warm, dry, intact, normal color. Absent: rash Course Vital Signs 12/21/21 18:43 Temperature 97.7 F Pulse Rate 78 Respiratory 18 Rate Blood Pressure 159/84 O2 Sat by Pulse 98 Oximetry - Reevaluation(s) Reevaluation #1: 12/21/21 22:24 Patient initially told me that she was feeling much better. However apparently she just told the RN that she was still in quite a bit of pain. Reevaluation #2: 12/21/21 22:38 Patient actually telling me that the supine position is bothering her chronic back pain. - Consultations Consultation #1: Call placed for interventional radiology. Medical Decision Making - Medical Decision Making Given the symptomology and timing of this headache, patient likely has a spinal headache as she had epidurals morning at 7 AM. We'll treat with IV caffeine, Zofran, morphine, Toradol. Plan for reevaluation. Patient may be a candidate for blood patch. Disposition Clinical Impression: Spinal puncture headache, Chronic back pain Disposition: HOME SELF-CARE Condition: Stable Instructions (If sedation given, give patient instructions): Acute Headache (ED) Additional Instructions: Try to stay supine is much can over the next 12-24 hours. Drink caffeine containing products. Take your own medication as directed by your doctor. You can also add in Tylenol. Follow-up with your regular physician or the pain management physician. Follow-up with your regular physician as directed. Return to the ER immediately if any symptoms worsen, new symptoms arise, or any other problems develop. Is patient prescribed a controlled substance at d/c from ED?: No Referrals: Mohinder Weber DO [Primary Care Provider] - 1-2 days Adolfo Penaloza MD [STAFF PHYSICIAN] - 1-2 days Time of Disposition: 22:43
[2021-12-21] MEDS ORDERED: CAFFEINE-SODIUM BENZOATE 500 MG in SODIUM CHLORIDE 0.9% 1,000 ML IVPB ONE (21:00)
[2021-12-21 23:19] VITALS: BP 157/89; PULSE 86
== END 2021-12-21 23:20 | disposition home or self-care (01) ==
LOC: EC 17:59
DX: G97.1 Other reaction to spinal and lumbar puncture (principal); M54.50 Low back pain, unspecified; G89.29 Other chronic pain; Z88.8 Allergy status to other drugs, medicaments and biological substances; Z88.2 Allergy status to sulfonamides; Z88.1 Allergy status to other antibiotic agents
CPT/HCPCS: 96365; 96375; 96361; 99284; J2270; J2405; J1885

== ENCOUNTER → 2021-12-27 | Outpatient (CLI) | payer BC ==
[2021-12-27 13:49] VITALS: BP 141/73; PULSE 67; RESP 18; TEMP 96.8
--- NOTE | 2021-12-27 14:24 | P.PAINPG ---
Objective - Vital Signs Vital signs: Intake & Output 12/26/21 12/27/21 12/27/21 18:59 06:59 18:59 Weight 61.235 kg PQRS Measure Charge Sheet Comment: A 61 yr old female with a history of severe and chronic low back pain secondary to lumbar degenerative disc diseases and lumbar spondylosis with facet arthropathy without myelopathy presents today for evaluation s/p VIOLETTE L4-L5. Pt states she experienced 30% pain relief x 1 wk s/p procedure. Thye same day as the VIOLETTE, she experienced nausea, vomiteing and headache. Pain level is currently at 2/10 in intensity, constant, localized in R lower lumbar spine, throbbing in characer, w shooting towards the R knee. Pain is provoked by chiropractic treatments, bending/twisting. Pain is alleviated with PT in October 2021, home exercise regimen, heat, meds (Tramadol, Ibuprofen), repositioning and rest. Interventional pain procedures completed include VIOLETTE L4-L5 Patient is currently on Tramadol, Ibuprofen. Patient denies any side effects of the medication(s), denies excessive drowsiness or sleepiness, denies suicidal ideation and reports that the current pain medication is helping to control the pain and improve activities of daily living. Patient denies any motor or sensory deficits. Patient denies any fever or night sweats, denies any change in the bowel movements or urination. Physical Examination: -Constitutional: Cooperative. Not in acute distress . - Neurologic: Cranial nerve II to XII intact. No focal neurological deficits. - Psychatric: Alert & oriented x 3. Matching mood & appropriate affect. Judgment and insight intact. - Musculoskeletal: Cervical spine: Muscle bulk/ tone/ strength in the bilateral upper extremities normal Vertebral body tenderness to palpation over Spurling test positive Distraction test positive Facet loading test positive Thoracic spine +R T8-L4 paraspinal TTP Muscle bulk / tone/ strength in the bilateral paraspinal muscles normal Vertebral body tender to palpation over Facet loading test positive Lumbar spine: Motor bulk/ tone/ strength lower extremities , thigh and legs : 5/5 Deep tendon reflexes : Normal Knee Jerk. Normal Ankle Jerk . Vertebral body tenderness to palpation over Lumbar Facet Loading Test positive Straight Leg Raise: positive at 30 degrees right side/ left side Gaenslen's Test positive Sacral spine : Severe tenderness over the Sacroiliac joint: right side / left side Range of motion: Flexion of the lumbar spine <60 degrees Range of motion: Extension of the lumbar spine <20 degrees Gaenslen's Test positive Uriel's Test positive Sienna test: positive right side / left side Thigh Thrust Test Sacral Thrust Test Assessment and plan: Chronic low back pain secondary to lumbar degenerative disc disease , lumbar spondylosis with facet arthropathy without myelopathy Recommendation of TPIs of R thoraco lumbar spine. Pt wants pain relief but does not want to have anesthesia/ sedation/ twilight at this time because she is concerned she had an allergic reaction to the anesthetic. She is open to having anesthesia/ sedation/ twilight in the near future to better determine if she developed an allergic reaction to an anesthetic or not. Risks, benefits of procedure discussed and pt verbalized understanding. Denies anticoagulant use or medical history of diabetes. All patient questions answered I have spent less than 30 minutes on patient care today. Dr Chilel was available by phone for the evaluation of this patient. The time was used to review the medical records including relevant urine studies and Prescription history (MAPs), review of the available imaging, evaluation and examination of the patient, coordination of care with the medical staff and if applicable referring physicians, as well as creation of the medical record PQRS Narrative: Smoking Status Never smoker Hx Alcohol Use (MH) Yes: VARY RARELY Home Medications: Ambulatory Orders Ibuprofen [Motrin] 600 mg PO Q8HR PRN #20 tab 06/16/20 Cyclobenzaprine [Flexeril] 10 mg PO DAILY PRN 02/23/21 Atorvastatin [Lipitor] 10 mg PO HS 11/09/21 traMADol HCL 50 mg PO HS PRN 11/09/21 Magnesium 500 mg PO DAILY 12/21/21 Ondansetron [Zofran] 4 mg PO Q8HR PRN 30 Days #90 tab 12/22/21 Controlled Substance Measures - Controlled Substance Measures Is patient prescribed a controlled substance at discharge?: No
== END ==
LOC: PNWHC3 13:24
PROVIDERS: ATTEND Specialist
DX: M51.36 Other intervertebral disc degeneration, lumbar region (principal); M47.816 Spondylosis without myelopathy or radiculopathy, lumbar region; G89.29 Other chronic pain; Z88.1 Allergy status to other antibiotic agents
CPT/HCPCS: 99211

== ENCOUNTER → 2022-07-18 | Outpatient (CLI) | payer BC ==
[2022-07-18 08:07] VITALS: BP 145/85; PULSE 74; RESP 18; TEMP 97.5
--- NOTE | 2022-07-18 12:27 | P.PAINPG ---
PQRS Measure Charge Sheet Comment: A 62 yr old female with a history of severe and chronic thoracolumbar pain x 2 yrs from a work injury secondary to thoracolumbar DDD and spondylosis with facet arthropathy without myelopathy presents today for MRI results. Pain level is provoked at 5 /10 in intensity, constant, localized in the lumbar spine, achy/ sharp in character w shooting towards the R hip. Pain is provoked by standing from a sitting position or sitting/ standing/ walking for periods of 15 min or more. Pain is alleviated with PT integrated w massage x 6 wks in Feb-Apr 2022 which was ineffective, chiropractic treatments semi weekly x 2 mo which didn't help, heat, ice, medications, topicals which did not help, laying supine and r est. Interventional pain procedures completed include VIOLETTE L4-L5, Thoracolumbar TPIs Patient is currently on Ibu, Tramadol, Flexeril Patient denies any side effects of the medication(s), denies excessive drowsiness or sleepiness, denies suicidal ideation and reports that the current pain medication is helping to control the pain and improve activities of daily living. Patient denies any motor or sensory deficits. Patient denies any fever or night sweats, denies any change in the bowel movements or urination. Physical Examination: -Constitutional: Cooperative. Not in acute distress . - Neurologic: Cranial nerve II to XII intact. No focal neurological deficits. - Psychatric: Alert & oriented x 3. Matching mood & appropriate affect. Judgment and insight intact. - Musculoskeletal: Cervical spine: Muscle bulk/ tone/ strength in the bilateral upper extremities normal Vertebral body tenderness to palpation over Spurling test positive Distraction test positive Facet loading test positive TTP Thoracic spine Muscle bulk / tone/ strength in the bilateral paraspinal muscles normal Vertebral body tender to palpation over T8 Facet loading test positive TTP Lumbar spine: Motor bulk/ tone/ strength lower extremities , thigh and legs : 5/5 Deep tendon reflexes : Normal Knee Jerk. Normal Ankle Jerk . Vertebral body tenderness to palpation over Lumbar Facet Loading Test positive Straight Leg Raise: positive at 30 degrees right side/ left side Gaenslen's Test positive Sacral spine : Severe tenderness over the Sacroiliac joint: right side / left side Range of motion: Flexion of the lumbar spine <60 degrees Range of motion: Extension of the lumbar spine <20 degrees Gaenslen's Test positive right side / left side Sienna test: positive right side / left side Thigh Thrust Test positive right side / left side Sacral Thrust Test positive right side / left side Imaging: MRI without contrast of the cervical, thoracic, lumbar spine from 05/07/22 reviewed Assessment and plan: Chronic mid back pain secondary to thoracic disc herniation, DDD, spondylosis with facet arthropathy without myelopathy Recommendation of VIOLETTE T8-T9 #1. May need a series of injections for optimal pain relief. Risks, benefits of procedure discussed and pt verbalized understanding. Admits to anticoagulant use or medical history of diabetes. Protocol for discontinuation/ continuation of medications britt procedure discussed. All questions answered. I have spent less than 30 minutes on patient care today. Dr Chilel was available by phone for the evaluation of this patient. The time was used to review the medical records including relevant urine studies and Prescription history (MAPs), review of the available imaging, evaluation and examination of the patient, coordination of care with the medical staff and if applicable referring physicians, as well as creation of the medical record PQRS Narrative: Smoking Status Never smoker Hx Alcohol Use (MH) Yes: VARY RARELY Home Medications: Ambulatory Orders Ibuprofen [Motrin] 600 mg PO Q8HR PRN #20 tab 06/16/20 Cyclobenzaprine [Flexeril] 10 mg PO DAILY PRN 02/23/21 Atorvastatin [Lipitor] 10 mg PO HS 11/09/21 traMADol HCL 50 mg PO HS PRN 11/09/21 Magnesium 500 mg PO DAILY 12/21/21 Ondansetron [Zofran] 4 mg PO Q8HR PRN 30 Days #90 tab 12/22/21 Controlled Substance Measures - Controlled Substance Measures Is patient prescribed a controlled substance at discharge?: No
== END ==
LOC: PNWHC3 07:23
PROVIDERS: ATTEND Specialist
DX: M51.36 Other intervertebral disc degeneration, lumbar region (principal); G89.29 Other chronic pain; M51.24 Other intervertebral disc displacement, thoracic region; M47.816 Spondylosis without myelopathy or radiculopathy, lumbar region; Z88.1 Allergy status to other antibiotic agents; Z88.8 Allergy status to other drugs, medicaments and biological substances
CPT/HCPCS: 99211

== ENCOUNTER 2022-08-09 09:01 | Day surgery (SDC) | payer BC ==
[2022-08-05 13:51] VITALS: BMI 23.9
[~2022-08-09 09:01] MED LIST changes: -LIDOCAINE 1% (10MG/ML) FOR IV START INTRADERMA PRN
[2022-08-09 09:45] VITALS: RESP 16; TEMP 97
[2022-08-09] MEDS ORDERED: ROPIVACAINE 5 MG/ML 20 ML AMPULE ONE (10:32)
[2022-08-09] MEDS ORDERED: TRIAMCINOLONE ACETONIDE 40 MG/ML 1 ML VIAL ONE (10:32)
[2022-08-09] MEDS ORDERED: IOPAMIDOL M200 10 ML VIAL ONE (10:32)
--- NOTE | 2022-08-09 10:50 | P.PCN ---
Date of Procedure: 08/09/22 Anesthesia: local Surgeon: Josefina He Pathology: none sent Condition: stable Disposition: PACU Description of Procedure: PROCEDURE 1. Thoracic epidural steroid injection under fluoroscopic guidance, T8 -T9 paramedian approach. 2. Thoracic epidurogram. : PREOPERATIVE DIAGNOSIS: Thoracic radiculopathy, Thoracic spondylosis without m yelopathy, thoracic disc herniation POSTOPERATIVE DIAGNOSIS: : Same as above ANESTHESIA: Local anesthesia only with 1% lidocaine . PROCEDURE INDICATION: The patient with neck pain and radiculopathy unresponsive to conservative treatment consents for procedure. PROCEDURE DESCRIPTION / TECHNIQUE: The patient was seen and identified in the preoperative area. Risks, benefits, complications, including but not limited to infections ,bleeding , allergic reactions to the medications ,and not complete pain relief, and alternatives were discussed with the patient, the patient agreed to proceed with the procedure and signed the consent. Patient was taken to the OR and time out was completed. The patient was placed in the prone position on the procedure table. A pillow was placed under the patients chest to increase the flexion of the cervical spine . The cervical area was prepped and draped in the usual sterile fashion. Vital signs were closely monitored during the procedure. Conscious sedation was used during the procedure to decrease patients anxiety. Using anterior-posterior fluoroscopy, the T8-9 interlaminar space was identified and the skin over this site was marked and then infiltrated with 1% lidocaine subcutaneously. Subsequently, a 20-gauge 3-1/2-inch Tuohy epidural needle was inserted and advanced toward the epidural space by means of loss of resistance to air technique and guided by AP and lateral fluoroscopy. The needle tip contacted the lamina of T9 vertebra first, then it was walked off bone and into the epidural space using the loss of to air and fluoroscopic guidance to identify the epidural space. The correct needle position in the epidural space was verified with the injection of 1 mL of the water soluble contrast dye Isovue and observing an excellent epidurogram with the epidural spread of the dye, after negative aspiration for blood and CSF and in the absence of paresthesias. Again after negative aspiration, a 6 ml mixture containing 40 mg of Kenalog +1 mL of ropivacaine 0.5% plus 4 mls of preservative free Normal Saline solution was injected and a washout of epidurogram was seen. Needle was withdrawn intact, skin was cleansed, and bandages were applied. A copy of the needle placement picture was saved to the fluoroscopy machine.
[2022-08-09 11:10] VITALS: BP 148/89; PULSE 68
--- NOTE | 2022-08-09 11:32 | FL ---
Intraoperative/procedural fluoroscopic services were provided for thoracic spine epidural injection. Total fluoroscopy time is 10 seconds with a total of 3 submitted images to PACS. Total DAP 0.13675 mG ym2. Please see the operative note for further details.
== END 2022-08-09 11:21 | disposition home or self-care (01) ==
LOC: ORPAIN 09:01
PROVIDERS: ATTEND Anesthesiology
DX: M51.14 Intervertebral disc disorders with radiculopathy, thoracic region (principal); M47.24 Other spondylosis with radiculopathy, thoracic region; Z88.8 Allergy status to other drugs, medicaments and biological substances
CPT/HCPCS: 62321; 99152; J3301; Q9966; J2795

== ENCOUNTER → 2022-09-01 | Outpatient (CLI) | payer BC ==
[2022-09-01 14:14] VITALS: BP 154/79; PULSE 67; RESP 18; TEMP 98.4
--- NOTE | 2022-09-01 14:27 | P.PAINPG ---
PQRS Measure Charge Sheet Comment: A 62 yr old female with a history of severe and chronic mid back pain secondary to thoracic DDD and spondylosis with facet arthropathy without myelopathy presents today for evaluation s/p VIOLETTE T8-9. Pt states she experienced 80 % pain relief x 3 wks s/p procedure. Pain level is provoked at 8 /10 in intensity, constant, localized in the lumbar spine, achy/ sharp in character w/o shooting pain. Pain is provoked by laying supine and over activity. Pain is alleviated with PT w massage x 2 mo in Apr 2022, heat, ice, medications, topical, repositioning and rest. Interventional pain procedures completed include VIOLETTE T8-9 x2, L4-5 x2 Patient is currently on Ibu Patient denies any side effects of the medication(s), denies excessive drowsiness or sleepiness, denies suicidal ideation and reports that the current pain medication is helping to control the pain and improve activities of daily living. Patient denies any motor or sensory deficits. Patient denies any fever or night sweats, denies any change in the bowel movements or urination. Physical Examination: -Constitutional: Cooperative. Not in acute distress . - Neurologic: Cranial nerve II to XII intact. No focal neurological deficits. - Psychatric: Alert & oriented x 3. Matching mood & appropriate affect. Judgment and insight intact. - Musculoskeletal: Cervical spine: Muscle bulk/ tone/ strength in the bilateral upper extremities normal Vertebral body tenderness to palpation over Spurling test positive Distraction test positive Facet loading test positive TTP Thoracic spine Muscle bulk / tone/ strength in the bilateral paraspinal muscles normal Vertebral body tender to palpation over Facet loading test positive TTP Lumbar spine: Motor bulk/ tone/ strength lower extremities , thigh and legs : 5/5 Deep tendon reflexes : Normal Knee Jerk. Normal Ankle Jerk . Vertebral body tenderness to palpation over Lumbar Facet Loading Test positive Straight Leg Raise: positive at 30 degrees right side/ left side Gaenslen's Test positive Sacral spine : Severe tenderness over the Sacroiliac joint: right side / left side Range of motion: Flexion of the lumbar spine <60 degrees Range of motion: Extension of the lumbar spine <20 degrees Gaenslen's Test positive right side / left side Sienna test: positive right side / left side Thigh Thrust Test positive right side / left side Sacral Thrust Test positive right side / left side Assessment and plan: Chronic mid back pain secondary to thoracic DDD, spondylosis with facet arthropathy without myelopathy Will manage residual pain on her own and may return to clinic on an as needed basis. All questions answered. I have spent less than 30 minutes on patient care today. Dr Chilel was available by phone for the evaluation of this patient. The time was used to review the medical records including relevant urine studies and Prescription history (MAPs), review of the available imaging, evaluation and examination of the patient, coordination of care with the medical staff and if applicable referring physicians, as well as creation of the medical record PQRS Narrative: Smoking Status Never smoker Hx Alcohol Use (MH) Yes: VARY RARELY Home Medications: Ambulatory Orders Ibuprofen [Motrin] 600 mg PO Q8HR PRN #20 tab 06/16/20 Cyclobenzaprine [Flexeril] 10 mg PO DAILY PRN 02/23/21 Atorvastatin [Lipitor] 10 mg PO HS 11/09/21 traMADol HCL 50 mg PO HS PRN 11/09/21 Magnesium 500 mg PO DAILY 12/21/21 Ondansetron [Zofran] 4 mg PO Q8HR PRN 30 Days #90 tab 12/22/21 Controlled Substance Measures - Controlled Substance Measures Is patient prescribed a controlled substance at discharge?: No
== END ==
LOC: PNWHC3 13:52
PROVIDERS: ATTEND Specialist
DX: M51.34 Other intervertebral disc degeneration, thoracic region (principal); M47.814 Spondylosis without myelopathy or radiculopathy, thoracic region; G89.29 Other chronic pain; Z88.2 Allergy status to sulfonamides; Z88.1 Allergy status to other antibiotic agents
CPT/HCPCS: 99211

== ENCOUNTER → 2022-12-07 | Outpatient (CLI) | payer BC | END | disposition home or self-care (01) | LOC: LABPAT 09:28 | PROVIDERS: ATTEND Orthopaedic Surgery | DX: Z01.812 Encounter for preprocedural laboratory examination (principal); Z22.322 Carrier or suspected carrier of Methicillin resistant Staphylococcus aureus; M47.816 Spondylosis without myelopathy or radiculopathy, lumbar region; M48.061 Spinal stenosis, lumbar region without neurogenic claudication; M43.16 Spondylolisthesis, lumbar region | CPT/HCPCS: 87070 ==

== ENCOUNTER 2022-12-13 11:53 | Inpatient (IN) | payer BC ==
[2022-12-09 16:12] VITALS: BMI 23.9
--- NOTE | 2022-12-13 06:46 | P.HPOR ---
History of Present Illness H&P Date: 12/07/22 Chief Complaint: Low back pain .D:Date: 12/07/22 : 04:11pm .T:Title: *[facility]... COPY... Date of :[birth year] R14 Allergies: Age: 62 year Height: 5'3" Weight: 134 lbs BP:122/72 BMI: 23.74 kg/m2 Occupation: Disabled VAS: 3 CHIEF COMPLAINT: Low back pain DOI: 06/2020 DOS: None Duration of current treatment regiment:> 8 months HISTORY: Xrays No new xrays taken in office Trauma or injury No Work-Related No Pain description Aching & sharp Location Diffuse Activity Modification Yes , unable to perform most of her daily activities any job functions due to the severity of the pain. Hand Dominance Right TREATMENTS COMPLETED: 6 weeks of PT completed? Yes (completed 01/06/2021) How many sessions? 12 Did it help? No, aggravated her symptoms Physician directed home exercise completed? Yes, daily with mild/temporary improvements. Medications Yes; List: Tramadol Alternative interventions Chiropractic?: Yes, with mild/temporary relief. Brace: No Injections T8-T9 Interlaminar VIOLETTE injection with moderate relief of her symptoms. (02/2021) How many: 1 RFA: No SUBJECTIVE: Today Ms. Palma presents to the office for a pre-operative appointment for her L4-S1 decompression and fusion. Since last visit patient reports no changes to her symptoms. The patient notes continued pain throughout the thoracolumbar spine with radiating pain down into the bilateral lower extremities, with the right being more severe than the left at this time. The patient also continues to experience intermittent spasms throughout the low back that prohibit her from completing regular activities of daily living. She notes that her symptoms are exacerbated with prolonged standing and ambulation. She is experiencing severe sleep disturbances due to her ongoing symptoms. The patient notes that her pain has started to significantly affect her overall quality of life. 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 Patient currently takes tramadol for her pain and symptoms. Otherwise she denies any f/c/sob/cp, no bladder or bowel retention/incontinence, no perineal numbness/tingling, and ambulates independently today. HPI: Ms. Palma presents to the office on 09/02/22 for a re-check on her low back. The patient notes continued pain throughout the thoracolumbar spine with radiating pain down into the bilateral lower extremities, with the right being more severe than the left at this time. She notes that her lower extremity pain has continued to worsen over the last 2 to 3 months and is associated with numbness and tingling. The patient also continues to experience intermittent spasms throughout the low back that prohibit her from completing regular activities of daily living. She notes that her symptoms are exacerbated with prolonged standing and ambulation. She continues to experience severe sleep disturbances due to her ongoing symptoms. The patient notes that her pain has started to significantly affect her overall quality of life. 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 Otherwise she denies any f/c/sob/cp, no bladder or bowel retention/incontinence, no perineal numbness/tingling, and ambulates independently today. Ms. Palma was last seen on 09/13/2021 for a re-check of her low back. Since the time of the last appointment the patient reports that she has seen no improvements to her symptoms. Patient continues to complain of thoracolumbar pain with symptoms radiating down into the right lower extremity with associated numbness and tingling. With this pain she does also report continued "spasming" of the back muscles which are frequent and limit her ability to lift heavy objects. Overall these symptoms have continued to be exacerbated with prolonged standing and ambulation making completion of her daily tasks challenging. Due to her symptoms she does still complain of sleep disturbances as well. As for treatments she notes that she has not found any notable relief to her symptoms with all modalities trialed thus far. Otherwise she denies any f/c/sob/cp, no b ladder or bowel retention/incontinence, no perineal numbness/tingling, and ambulates independently. Ms. Palma was last seen on 04/23/2021 regarding her thoracic and lumbar spine and to review her repeat MRI obtained after the time of the last appointment. Regarding her symptoms she notes that she has not changed since the last appointment. As for treatment she notes that she has continued with her medications and home exercises without any discernable relief. Otherwise she denies any focal changes since the time of the last appointment. She notes that she is still having great difficulty with completing her daily tasks due to the severity of her symptoms. Patient denies any bladder or bowel issues, no perineal numbness/tingling, and is ambulating independently. Patient last presented to the office on 03/25/21 for a post-injection recheck. Since her last appointment the patient notes that her back pain has improved mildly since the time of the last appointment. With this she has been able to complete more of her daily functions but she notes that she is still moderately limited. With this she has been taking her Gabapentin and Flexeril with mild improvements. Overall she notes that she has improved but is still having pain and issues with any bending/lifting/twisting motions. She reports that since the initial onset of her symptoms they have not improved. Otherwise the patient denies any bladder or bowel issues, no perineal numbness/tingling, and no perineal numbness/tingling. Ms. Palma last presented to the office on 02/17/2021 for a follow up evaluation her thoracic back. She presents today to review her progress with conservative treatments and to review the results of her MRI of the cervical spine. Since the time of the last appointment the patient notes that she has not improved regarding the symptoms previously explained. Along with this, she states that she has had a recent increase in pain about he 3rd and 4th toe on the left foot, limiting her ability to ambulate on them. The pain is made worse with any pressure/weightbearing. As for treatments she notes that she took the Lyrica for 3 weeks but then d/c as she did not like taking them (gave her drowsiness). Additionally she completed the Medrol Dose Porfirio without any improvements as well. She notes that she has had 1 VIOLETTE injection so far but is currently scheduled for more. Otherwise the patient denies any bladder or bowel issues, no perineal numbness/tingling, and presents to the office without the use of any aides. Patient last presented to the office on 01/06/2021 for an evaluation of her thoracic back. Since the time of the last appointment she notes that her pain has not improved. She notes continued sharp pain with stiffness about the mid- back that is limiting her daily functionality. This pain is aggravated with weightbearing and bending/twisting motions. She does note that her symptoms are relieved with Motrin and rest. Due to the severity of her symptoms she notes that she is unable to sleep which is bringing her great distress. Of note, she is currently in PT and notes that this does exacerbate her mid back symptoms. In addition to this mid back pain, while in PT 3 weeks ago she notes that she felt an increase in left upper extremity pain. This pain is aggravated with [id number] and abduction movements. Additionally she noted occasional "locking" sensations about the shoulder. She denies trying any treatments for this at this time. Ms. Palma was initially seen on 11/11/2020 regarding her thoracic back. This pain started in 06/2020 while at work, noting that she caught a very heavy object and has noticed increased pain about the mid back since. She did present to the emergency room for this pain where she was given steroid injections that did help relieve her pain temporarily. After this she was seen by her PCP for this pain, who has ordered both Flexeril/Ibuprofen and physical therapy for. She was using Flexeril and Ibuprofen for pain management with little relief. Her pain was severe and she notes it was very tender to palpation. Along with this severe pain she does note muscle "spasms". This pain can become so severe that she was unable to walk. She denied any pain radiating into her ribs bilaterally. With her thoracic pain she does note pain and weakness radiating into her right lower extremity. Overall the patient reports that she is having great difficulty completing many of her daily activities. She does not use any ambulatory aides. Patient does deny bowels issues or incontinence. The patients' past social, medical, family, surgical history, as well as review of systems, have been reviewed. Please refer to the Neurosurgery History and Physical form that has been scanned in to our electronic medical record system. 16 points review of systems completed and as stated in HPI, all other systems reviewed are negative. Social History: Reviewed, see appropriate section of the chart for details. P3 Social History: Smoking: former smoker P3 Smoking Quit Date: 1980 Alcohol: occasional alcohol P3 Family History: Reviewed, see appropriate section of the chart for details. P2 Past Medical History: Reviewed, see appropriate section of the chart for details. [id number] Medications: Rx: atorvastatin Ref: 0 Rx: estradioL 0.01% (0.1 mg/gram) vaginal cream Ref: 0 Rx: Flexeril Ref: 0 Rx: ZyrTEC Ref: 0 Rx: Motrin IB 200 mg capsule Ref: 0 Rx: traMADol 50 mg tablet Ref: 0 PHYSICAL EXAMINATION: General:Awake, alert, appropriate for age, in no acute distress. HEENT:No unusual neck masses around region of lateral neck triangle, thyroid, supraclavicular groove Heart:Regular rate and rhythm, normal S1, S2 and no murmur/gallop. Lungs:Clear to auscultation bilaterally with no use of accessory muscles. Extremities:Skin warm and dry without acute lesions, coloration, temperature, skin intact, no tenderness or erythema Integument: Hairy patches: ABSENT Dorsal skin dimples: ABSENT Cafe au lait spots: ABSENT Surgical incisions: NONE Palpation: Please see Pain drawing on Intake sheet for further detail. Midline spinal tenderness:No E6 Cervical Tenderness: No E6 Paralumbar tenderness:Yes E6 Parathoracic tenderness:No E6 Buttocks tenderness:No E6 Sacroiliac Tenderness:No POSTURAL and MUSCULO-SKELETAL EVALUATION: Coronal Balance:NEUTRAL Recumbent testing:Patient isable to lay flat on back Sagittal Balance:NEUTRAL Shoulder Profile:LEVEL Pelvic Girdle:LEVEL Neck ROM: UNRESTRICTED Lumbar ROM:RESTRICTED Shoulder ROM:Symmetrical Hip ROM:Symmetrical Knee ROM:Symmetrical Hands:Normal appearance, symmetrical Feet:Normal appearance, Symmetrical VASCULAR STATUS : LEFT RIGHT Wrist Pulses INTACT INTACT Pedal Pulses (Dors. pedis & post.tibialis) INTACT INTACT Color NORMAL NORMAL Edema Absent Absent NEUROLOGIC EXAMINATION: Mental Status:Awake and alert, fully oriented, with normal attention, concen tration and memory, and fluent, appropriate speech. Cranial Nerves: I: Olfactory not tested. II: Visual acuity normal, no visual field deficit noted with confrontation. III,IV: Normal pupillary reflexes & intact extraocular movements without nystagmus. V,: Intact symmetrical facial sensation. VII: Intact symmetrical facial motor movement VIII: Hearing intact. IX,X: Intact gag, swallow, & normal voice. XI: Sternocleidomastoid, trapezius function intact. XII: Tongue midline with normal movements. L'hermitte's Sign: Negative / absent Spurling'Sign: Absent bilaterally. Cubital percussion test: Absent bilaterally. Allen-Tinel sign - Carpal region: Absent bilaterally. Straight Leg Raising: Absent bilaterally. Crossed straight leg raise: negative O8 MOTOR EXAM (0-5/5, N/T) UPPER EXTREMITY Shoulder Abduction Biceps Triceps Wrist Extension Hand [employer] Right 5/5 5/5 5/5 5/5 5/5 4+/5 Left 5/5 5/5 5/5 5/5 5/5 4+/5 LOWER EXTREMITY Hip Flexion Knee Extension Knee Flexion DF PF EHL FHL Right 5/5 5/5 4+/5 5/5 5/5 5/5 5/5 Left 5/5 5/5 5/5 5/5 5/5 5/5 5/5 REFLEXES(0-4/2, NT)Upper ExtremityLower Extremity Right 2 2 Left 2 2 Pathological Reflexes RIGHT LEFT Allen's Absent Absent Clonus Absent Absent Babinski Absent Absent # Indicates mechanical impairment Muscle appearance: Symmetrical, without signs of atrophy or dystrophy. Sensory system (0-4, N/T) Test type RU KIM RL LL Joint-Position 2 2 2 2 Vibration 2 2 2 2 Pain & LT sense 2 2 2 2 Dermatomal Deficit: C5-C6 None L5-S1 None Gait and Functional Evaluation: Ambulatory aids: Independent Romberg's test: Intact bilaterally Toe heel walk / heel-toe walk intact while maintaining satisfactory balance? yes Squatting/straightening w/o assistance to a min of 60 degree knee flexion? yes Single leg stance: intact Trendelenburg sign negative bilaterally Hand and finger dexterity intact bilaterally? yes Disdiadochokinesis examination negative bilaterally? yes RADIOGRAPHS: MRI: Cervical spine completed on 05/07/2022 at [facility]: Mild spondylosis throughout no severe findings alignment maintain stability maintained MRI: Thoracic spine completed at [facility] on 05/07/2022: mild spondylosis throughout with multilevel small disc bulges. No large thecal sac impingement or cord impingement. Normal alignment maintained. MRI: Lumbar spine completed on 05/07/2022 at [facility]: L4 5 and L5-S1 severe spondylosis with disc height collapse stenosis related to disc collapsed disc herniation facet hypertrophy ligamentum flavum hypertrophy causing moderate to severe central and bilateral foraminal stenosis. Tarlov cyst noted at S2 centrally located noncompressive. Alignment is compromised at L5-S1 L4-L5 secondary to the anterior collapse flattening of the normal lumbar lordosis. There are no acute fractures or dislocations or other lesions noted at this time ASSESSMENT: 1. L4-S1 spondylosis with stenosis 2. Grade I spondylolisthesis of L4 on L5 and L5 on S1 3. Lower extremity radiculopathy 4. Low back pain PLAN: Based on my findings I suggest the following course of action: -I discussed treatment options with the patient, including operative and non- operative options, and they have elected to proceed with the following surgical procedure: L4-S1 open decompression and fusion The indications, risks, benefits, and alternatives to surgery were discussed with the patient and family at length. Specifically (but not limited to) the risks of infection, stiffness, recurrence of symptoms, need for revision surgery, local numbness, neurovascular injury, and blood clots were discussed. The patient's questions were answered. - Ambulate daily - Take medications as directed - Ice and rest for pain and swelling control. Spine Surgery Risk Review Ms. Palma is presenting for evaluation of low back pain. It was my pleasure to have seen and examined Ms. Palma. In our visit today we have had a chance to go over subjective complaints, physical examination findings and treatments including the natural course history without intervention and various interventional options. The patients imaging demonstrates: MRI: Cervical spine completed on 05/07/2022 at [facility]: Mild spondylosis throughout no severe findings alignment maintain stability maintained MRI: Thoracic spine completed at [facility] on 05/07/2022: mild spondylosis throughout with multilevel small disc bulges. No large thecal sac impingement or cord impingement. Normal alignment maintained. MRI: Lumbar spine completed on 05/07/2022 at [facility]: L4 5 and L5-S1 severe spondylosis with disc height collapse stenosis related to disc collapsed disc herniation facet hypertrophy ligamentum flavum hypertrophy causing moderate to severe central and bilateral foraminal stenosis. Tarlov cyst noted at S2 centrally located noncompressive. Alignment is compromised at L5-S1 L4-L5 secondary to the anterior collapse flattening of the normal lumbar lordosis. There are no acute fractures or dislocations or other lesions noted at this time On physical exam, Ms. Palma demonstrates: continued pain throughout the thoracolumbar spine with radiating pain down into the right lower extremity. She notes that her right lower extremity pain have continued to worsen over the last 2 to 3 months and is associated with numbness and tingling. The patient also continues to experience intermittent spasms throughout the low back that prohibit her from completing regular activities of daily living. She notes that her symptoms are exacerbated with prolonged standing and ambulation. She continues to experience severe sleep disturbances due to her ongoing symptoms. The patient notes that her pain has started to significantly affect her overall quality of life. I have explained to the patient that as their condition progresses it will cause further neurological deficits and eventual paralysis. Based on the patients i maging, physical exam, and the rapid progression and disabling nature of their symptoms, at this time I recommend surgery in the form of a: L4-S1 open transforaminal lumbar interbody fusion. I discussed the risk and benefits of this procedure at length with Ms. Palma. The patient agreed to considered pursuing the procedure above mentioned . Prior to surgery, she should follow up with her PCP (Cardio, ID, IM etc) for clearance. Questions were invited and answered, and the patient wishes to proceed as outlined below. Currently, I am recommendin.L4-S1 open decompression and fusion 2.Follow up with PCP for surgical clearance 3.Review of surgical risks and benefits as well as an educational packet on the proposed surgical procedure. Risks: All surgical procedures come with inherent risks, including those related to positioning, anesthesia, intraoperative findings, and postoperative complications. It is important to understand that surgery does not come with any guarantee of a successful outcome as complications and adverse events are always possible. The patient was given a handout in office today discussing the surgical procedure and risks associated with the intervention, both of which were discussed with the patient. These risks include but are not limited to the following: * Experiencing same, different or even worse symptoms in back, neck, arms, or legs compared to before surgery. Requiring further surgery or other forms of treatment presently or at some time in the future at same or other levels of the intended spine surgery. On an extreme but fortunately relatively rare basis severe complication such as blindness, stroke, heart attack, temporary and/or permanent nerve injury, paralysis, coma, or may occur, sometimes without known explanation. Surgical complications may include but are not limited to risk of infection, fluid accumulation in the surgical dissection site, including a seroma or hematoma, that requires additional surgery, wound drainage, bleeding, new numbness or weakness, vision changes/loss, spinal fluid leakage, non-healing and/or infected incision, headaches, difficulty or inability to swallow, hoarseness, hemopneumothorax, pneumothorax, impotence, retrograde ejaculation, vaginal dryness; injury to nerves, spinal cord, blood vessels, lymphatics or other vital organs (i.e., bowel injury, injury to the great vessels); heterotopic bone formation; complications related to the hardware such as screws, rods, cages including misplaced hardware, device failure, instrumentation at the wrong spine level, hardware fracture/breakage, or hardware loosening; vertebral failure of the spinal column above or below the newly placed hardware; retained surgical instrumentations or devices and the need for further surgery. * Medical risks of the planned spine surgery include but are not limited to generalized Infections to the whole body or local areas outside of the surgical site (sepsis), heart attack, bleeding, anaphylaxis, meningitis, seizure, epilepsy, hearing loss, burn peraza, laceration of the head or other areas of the body, bruising, hypersensitivity of the skin, bladder over distension; allergic reaction; shoulder injury related to positioning; fat, blood and air clots to other areas of the body like heart, lungs, brain; failure of internal organs such as lungs, kidneys, liver and excessive bleeding. If blood transfusions are necessary, note that transfusions may cause intolerance reactions such as anaphylaxis or other complex reactions. Despite best efforts, the results of spine surgery might not heal in terms of bone, soft tissues such as skin, fascia, ligaments, and joints. Additionally, in order to achieve best possible results, spine surgery may be carried out beyond the initially planned levels and involve decompression, fusion including insertion of hardware at levels other than the original intended area of surgical interest change some portions of the procedure in order to ensure the best possible outcomes. With spine surgery and spinal fusion, there are different off label uses of instrumentation (devices, implants and hardware) as well as biological substances (bone morphogenic proteins, demineralized bone matrix) as well as using extra bone from allograft sources (i.e. cadaver bone) or autograft (iliac crest bone, ribs, or the spine itself). The patient has been given information about these practices and their inherent risks and benefits. [facility] is an educational center that serves as a training facility for neurosurgical and orthopedic [employer] and Nursing students. Physician assistants are medically trained surgical providers who function in the outpatient, inpatient, and operating room setting under the direct supervision of the attending surgeon. [facility] has multiple operating rooms with single and overlapping rooms running daily. They currently function under the required guidelines as produced by the [facility] Finance Committee with regards to the overlapping rooms and will continue to comply with changes to this policy as they occur. The requirements include and are complied with as follows: (1) the critical portions of the overlapping rooms will not occur at the same time, (2) the attending physician will be physically present during the critical portions of the procedure and immediately available during the entire case, and (3) a back-up attending is designated should the primary attending not be immediately available. The patient has had a chance to review all the listed information, has been given print outs detailing this information, and has had all his/her questions answered to their satisfaction. It was my pleasure to have seen and examined Ms. Palma. In our visit today we have had a chance to go over my understanding of our patient's current condition, the natural course history without intervention and various interventional options. Questions were invited and answered, and the patient wishes to proceed as outlined above. I have seen and examined the patient for 25 minutes and we have spent more than 50% of the time in repeat and detailed counseling about the patient's condition, its natural course history with out and as much as can be predicted with surgery and re-review of various surgical treatment options. In conclusion, Ms. Palma requested we proceed with the above suggested surgery and are willing to accept risks and limitations of the suggested surgery as nature of the disease process and our best attempts at treatment for the condition. Thank you again for allowing us to be part of your patient's care. Please don't hesitate to contact me if you have any further questions. Signed and authenticated by: INCLUDEPICTURE P:\\\\ppart\\\\File s\\\\[id number]\\\\[id number]\\\\[id number]\\\\[id number]\\\\[id number]\\\\[id number]\\\\[id number]\\\\[id number]\\\\[id number]\\\\[id number]\\\\[id number]\\\\[id number]\\\\[id number]\\\\[id number]\\\\[id number].PNG \\d Brian Ortega DO [facility] Minimally Invasive Spine Surgery [address] [place] [id number] Follow- up: DEL Post procedure 1month 6wks 3 months 6 months 1 year Patient Education: (Informational booklet, instructions, etc) given at today's appointment: DEL Yes .ED:Patient Education: Y Medications Reviewed: YES In our visit today Ms. Palma and I have had a chance to go over my understanding of the patient's current condition, the natural course history without intervention and various interventional options. Questions were invited and answered, and the patient wishes to proceed as outlined above. I will be sure to keep you updated afterMsLeesa Palma returns here for further follow-up. Thank you again for your referral. Please do not hesitate to contact me if you have any further questions. Signed and authenticated by: ANSELMO Ortega DO [facility] Minimally Invasive Spine Surgery [address] [place], [place] [id number] This message is confidential, intended only for the named recipient(s) and may contain information that is privileged or exempt from disclosure under [facility] law. If you are not the intended recipient(s), you are notified that the dissemination, distribution or copying of this information is strictly prohibited. If you received this message in error, please notify the sender then delete this message. Patient verbalizes understanding of the information discussed. The above note was initiated by Polo Carter, physician recording news assistant for Dr. Brian Ortega. This note has been reviewed by Dr. Ortega, who has made his personal changes and impressions for this document. CC: Mohinder Weber D.O. Past Medical History Past Medical History: GERD/Reflux, Hyperlipidemia Additional Past Medical History / Comment(s): Work related injury resulting in herniated disc in back. History of Any Multi-Drug Resistant Organisms: None Reported Past Surgical History: Appendectomy, Section, Hysterectomy, Orthopedic Surgery, Tubal Ligation Additional Past Surgical History / Comment(s): Right finger surgery, radial tunnel syndrome right arm, pain clinic procedure. COLONOSCOPY, LYMPH NODE REMOVED UNDER LYMPH NODE Past Anesthesia/Blood Transfusion Reactions: Postoperative Nausea & Vomiting (PONV) Smoking Status: Never smoker - Past Family History Mother Family Medical History: No Reported History Medications and Allergies Home Medications Medication Instructions Recorded Confirmed Type Ibuprofen [Motrin] 600 mg PO Q8HR PRN #20 tab 06/16/20 12/09/22 Rx Atorvastatin [Lipitor] 10 mg PO HS 11/09/21 12/09/22 History traMADol HCL 50 mg PO HS PRN 11/09/21 12/09/22 History Magnesium 500 mg PO DAILY 12/21/21 12/09/22 History Acetaminophen [Tylenol Extra 1,000 mg PO BID 12/09/22 12/09/22 History Strength] Cetirizine HCl [Zyrtec] 10 mg PO DAILY 12/09/22 12/09/22 History Omeprazole 20 mg PO DAILY 12/09/22 12/09/22 History Allergies Allergy/AdvReac Type Severity Reaction Status Date / Time bacitracin Allergy Swelling Verified 12/09/22 16:03 [From Neosporin ([id number])] cephalexin [From Keflex] Allergy Rash/Hives Verified 12/09/22 16:03 neomycin Allergy Swelling Verified 12/09/22 16:03 [From Neosporin ([id number])] polymyxin B Allergy Swelling Verified 12/09/22 16:03 [From Neosporin ([id number])] Physical Examination Osteopathic Statement: *. No significant issues noted on an osteopathic structural exam other than those noted in the History and Physical/Consult.
[~2022-12-13 11:53] MED LIST changes: +ACETAMINOPHEN TAB 500 MG TAB PO PRN; +GABAPENTIN 300 MG CAP PO PRN; -LACTATED RINGERS 1,000 ML IV SCH; +ONDANSETRON 4 MG/2 ML VIAL IVP PRN; +TRANEXAMIC 1,000 MG/100ML-NACL 1,000 MG in SALINE 1 100ML.BAG IVPB PRN
[2022-12-13] MEDS ORDERED: HYDROmorphone 0.5 MG/0.5 ML SYRINGE IVP PRN ×2 (12:11→18:17)
[2022-12-13] MEDS ORDERED: ONDANSETRON 4 MG/2 ML VIAL IVP ONE (12:11)
[2022-12-13] MEDS ORDERED: fentaNYL (PF) 50 MCG/ML 2 ML AMP IV PRN (12:11)
[2022-12-13] MEDS: LACTATED RINGERS 1,000 ML IV SCH ×2 (12:15→14:53)
[2022-12-13] MEDS ORDERED: MIDAZOLAM 2 MG/2 ML VIAL IVP ONE ×2 (13:04→13:38)
[2022-12-13] MEDS ORDERED: fentaNYL (PF) 50 MCG/ML 2 ML AMP ONE (14:52)
[2022-12-13] MEDS ORDERED: SUCCINYLCHOLINE CHLORIDE 200 MG/10 ML VIAL IV ONE (14:52)
[2022-12-13] MEDS ORDERED: MIDAZOLAM 2 MG/2 ML VIAL ONE (14:52)
[2022-12-13] MEDS ORDERED: NEOSTIGMINE 1 MG/ML 10 ML VIAL ONE (14:52)
[2022-12-13] MEDS ORDERED: ROCURONIUM 10 MG/ML (5 ML VIAL) IV ONE (14:52)
[2022-12-13] MEDS ORDERED: GLYCOPYRROLATE 0.2 MG/ML 2 ML VIAL ONE (14:52)
[2022-12-13] MEDS ORDERED: TRANEXAMIC 1,000 MG/100ML-NACL PREMIX BAG ONE (14:52)
[2022-12-13] MEDS ORDERED: HYDROmorphone (PF) 1 MG/ML ONE (14:52)
[2022-12-13] MEDS ORDERED: LIDOCAINE 2% INJ 20 MG/ML (2 ML VIAL) ONE (14:52)
[2022-12-13] MEDS ORDERED: PHENYLEPHRINE-0.9% NACL SYG 1,000 MCG/10 ML SYRINGE ONE (14:52)
[2022-12-13] MEDS ORDERED: PROPOFOL 10 MG/ML 20 ML VIAL IV ONE (14:52)
[2022-12-13] MEDS ORDERED: GELATIN SPONGE,ABSORB (LARGE) 1 EACH SPONGE TOPICAL ONE (16:21)
[2022-12-13] MEDS ORDERED: THROMBIN (BOVINE) 5,000 UNIT VIAL TOPICAL ONE (16:22)
[2022-12-13] MEDS ORDERED: VANCOMYCIN 1,000 MG VIAL MISCELLANE ONE (17:30)
--- NOTE | 2022-12-13 18:12 | P.OP ---
Date of Procedure: 12/13/22 Preoperative Diagnosis: 1. L4-S1 SPONDYLOSIS, SEVERE 2. L4-S1 STENOSIS CENTRAL AND FORAMINAL MODERATE TO SEVERE 3. LE RADICULOPATHY 4. LE WEAKNESS 5. LOW BACK PAIN Postoperative Diagnosis: 1. L4-S1 SPONDYLOSIS, SEVERE 2. L4-S1 STENOSIS CENTRAL AND FORAMINAL MODERATE TO SEVERE 3. LE RADICULOPATHY 4. LE WEAKNESS 5. LOW BACK PAIN Procedure(s) Performed: 1. L4-5 POSTERIOLATERAL AND INTERBODY FUSION (38288) 2. L5-S1 POSTERIOLATERAL AND INTERBODY FUSION (45901) 3. L4-5, L5-S1 LAMINOFORAMINOTOMY, COMPLETE FACETECTOMY BILATERAL (23801, 87358) 4. INSTRUMENTATION L4-S1 (44134) 5. INSERTION OF BIOMECHANICAL DEVICE L4-5 AND L5-S1 (50765 X 2) 6. USE OF [employer] NAVIGATION FOR SCREW PLACEMENT (48989) USE OF IONM ALL SCREWS TESTING >12 MA Implants: -BETI EVEREST SCREWS AND RODS -GLOBUS SABLE CAGE 8 DEG, MED 10 AND 12 MM 9-17 MM -MAGNATOS/AUTOGRAFT (PL); VENTRIS CONTOUR (DS); ARTHROCELL (CAGE) Anesthesia: GETA Surgeon: Brian Ortega Grinder Hand #1: Karolina Foy (WAS PRESENT AND ASSISTED WITH ALL ASPECTS OF THE CASE FROM POSITIONING TO CLOSURE) Estimated Blood Loss (ml): 250 IV fluids (ml): 2,000 Urine output (ml): 400 Pathology: none sent Condition: stable Disposition: PACU Indications for Procedure: Ms. Palma is presenting for evaluation of low back pain. It was my pleasure to have seen and examined Ms. Palma. In our visit today we have had a chance to go over subjective complaints, physical examination findings and treatments including the natural course history without intervention and various interventional options. The patients imaging demonstrates: MRI: Cervical spine completed on 05/07/[address] [facility]: Mild spondylosis throughout no severe findings alignment maintain stability maintained MRI: Thoracic spine completed at [facility] on 05/07/2022: mild spondylosis throughout with multilevel small disc bulges. No large thecal sac impingement or cord impingement. Normal alignment maintained. MRI: Lumbar spine completed on 05/07/[address] [facility]: L4 5 and L5-S1 severe spondylosis with disc height collapse stenosis related to disc collapsed disc herniation facet hypertrophy ligamentum flavum hypertrophy causing moderate to severe central and bilateral foraminal stenosis. Tarlov cyst noted at S2 centrally located noncompressive. Alignment is compromised at L5-S1 L4-L5 secondary to the anterior collapse flattening of the normal lumbar lordosis. There are no acute fractures or dislocations or other lesions noted at this time On physical exam, Ms. Palma demonstrates: continued pain throughout the thoracolumbar spine with radiating pain down into the right lower extremity. She notes that her right lower extremity pain have continued to worsen over the last 2 to 3 months and is associated with numbness and tingling. The patient also continues to experience intermittent spasms throughout the low back that prohibit her from completing regular activities of daily living. She notes that her symptoms are exacerbated with prolonged standing and ambulation. She continues to experience severe sleep disturbances due to her ongoing symptoms. The patient notes that her pain has started to significantly affect her overall quality of life. I have explained to the patient that as their condition progresses it will cause further neurological deficits and eventual paralysis. Based on the patients imaging, physical exam, and the rapid progression and disabling nature of their symptoms, at this time I recommend surgery in the form of a: L4-S1 open transforaminal lumbar interbody fusion. I discussed the risk and benefits of this procedure at length with Ms. Palma. The patient agreed to considered pursuing the procedure above mentioned . Prior to surgery, she should follow up with her PCP (Cardio, ID, IM etc) for clearance. Questions were invited and answered, and the patient wishes to proceed as outlined below. Currently, I am recommendin.L4-S1 open decompression and fusion Description of Procedure: L4-S1 open Decompression and fusion (nuris) The patient was seen and examined in the preoperative area. All preoperative protocols were followed. Informed consent was obtained, risks and benefits of the procedure were discussed at length. Risks including bleeding infection damage to the surrounding tissue and risk of reoperation were discussed with the patient. Risk of anesthesia up to and including was discussed with the patient. These are outlined in the risk review. They were willing to accept these risks and all the risks of surgery. The patient was given a weight-based dose of antibiotics in the form of 2 g Ancef. The patient was seen and evaluated by the anesthesia team who deemed them fit for surgery. The site was marked, the patient was willing to proceed with the procedure. The patient was transferred to the operative suite by the Department of anesthesia. They were then drifted off to sleep by the department anesthesia and GETA was performed. The patient tolerated this well. Yi catheter was placed by nursing staff, a-traumatically. Once confirmation of lines and ventilation the patient was transferred to a prone Jostin table very carefully. All bony prominences including wrists, elbows, axilla, chest, hips, and thighs, and feet were padded very well. Special attention was paid to the genitalia, and these were padded accordingly. SCDs were placed on bilateral lower extr emities and were connected. Arms were well padded and placed on arm boards up and out in the 90/90 position. Once in position, again we confirmed good ventilation capabilities and that lines were running appropriately. The patients Lumbar spine was then exposed. 1010s were placed outlining the incision site. Standard alcohol was used to clean the incision site and allowed to dry. C-arm was used to needle localize the pedicles at L4-S1 and bio-sri the patient and confirm level for incision which was marked with a skin marker. Operative briefing was performed with all teams and everyone in agreement to proceed. The patient was then prepped and draped in a normal sterile fashion. Timeout was then performed, and all parties agreed with the procedure to be performed. Midline skin incision was made over the previously bio-marked area and dissection taken down over the SP of L3-S1. L4-S1 was taken out over facet joints and TPs and a penfield 4 used to sri the L4 pedicle. Lateral image used to confirm levels. Once confirmed, screws were proceeded to be placed b/l at pedicles from L4-S1 using [employer] Navigation. An SP clamp was used, 3D C arm spin obtained and confirmed to be accurate. Once this was confirmed screws were placed using a navigated abraham, navigated awl-tap and navigated coach tour driver. Once screws were placed they were confirmed to be in good position using AP and Later al fluoroscopy. The wound was then irrigated. Screws were tested and all tested above 20 mA. We then proceeded to decompression and cage placement. Attention was then turned to interbody fusion at L5-S1. Bilateral laminectomy, complete facetectomy and foraminotomy performed at L5-S1 using high speed abraham and Kerrison rongeur. The ligamentum was removed and the dural sac decompressed. Exiting and traversing roots visualized and decompressed. Neural elements were then protected, and disc space accessed with an osteotome. Sequential shaving then done under lateral imaging and complete discectomy performed using bhavesh, pituitary and curette. Once good bleeding endplates accomplished and good height lutheran with trials, a combination of autograft, allograft and synthetic placed anterior in the disc space. The cage was then selected and impacted into place under lateral imaging. The cage was then expanded restoring height, lordosis and alignment. The cage was backfilled with bone graft through a funnel. The optician was removed and the area inspected. Good cage placement, stable cage and no injuries. Area was irrigated copiously, and meticulous hemostasis achieved. The tubular retractor was then removed under direct visualization. Attention was then turned to interbody fusion at L4-5. Bilateral laminectomy, complete facetectomy and foraminotomy performed at L4-5 using high speed abraham and Kerrison rongeur. The ligamentum was removed and the dural sac decompressed. Exiting and traversing roots visualized and decompressed. Neural elements were then protected, and disc space accessed with an osteotome. Sequential shaving then done under lateral imaging and complete discectomy performed using bhavesh, pituitary and curette. Once good bleeding endplates accomplished and good height lutheran with trials, a combination of autograft, allograft and synthetic placed anterior in the disc space. The cage was then selected and impacted into place under lateral imaging. The cage was then expanded restoring height, lordosis and alignment. The cage was backfilled with bone graft through a funnel. The optician was removed and the area inspected. Good cage placement, stable cage and no injuries. Area was irrigated copiously, and meticulous hemostasis achieved. The wound and disc spaces were irrigated and meticulous hemostasis achieved. Rods were then sized and selected and placed into S1 screws b/l. Set screws locked these in place and then sequentially reduced into L4 and L5 b/l for alignment lutheran. This was accomplished. Set screws were then all placed and final tightened. A cross link was selected and placed and final tightened. TPs were then decorticated with a high speed abraham. The wound was irrigated with 3L Ancef irrigation, 3L gentamicin irrigation and 3L NSS. Surgery was placed over the dura. Autograft and MagnatOs then placed in the posterolateral gutters and impacted into place. Deep drain placed and secured to the skin. Final images confirmed good placement of hardware and good reduction of listhesis as well as lutheran of height and lordosis. Fascia was then closed with #1 PDS. Deep subq closed with 0 Vicryl. Superficial subq closed with 2-0 Vicryl and skin with sue. Wound edges approximated very well. Wound was then cleaned with alcohol and dried. Wounds dressed with Optifoam dressings. The patient was then transferred off the table back to their hospital bed a- traumatically. They were extubated by the department of anesthesia. They were then transferred to PACU in stable condition having tolerated the procedure with no complications.
[2022-12-13] MEDS ORDERED: bisacodyL 10 MG SUPP RECTAL PRN (18:17)
[2022-12-13] MEDS ORDERED: MAGNESIUM HYDROXIDE 2,400 MG/30 ML CUP PO PRN (18:17)
[2022-12-13] MEDS ORDERED: LACTATED RINGERS 1,000 ML IV ONE (19:45)
--- NOTE | 2022-12-13 19:46 | XR ---
Intraoperative/procedural fluoroscopic services were provided. Total fluoroscopy time is 26.5 seconds with a total of 5 submitted images to PACS. Please see the operative/procedural note for further det ails. DAP: 3.7455 Gycm2
[2022-12-13] MEDS: HYDROmorphone 1 MG/ML 1 ML SYRINGE IVP PRN (22:06)
--- NOTE | 2022-12-13 22:13 | P.CONS ---
History of Present Illness - Reason for Consult Consult date: 12/13/22 Medical management Requesting physician: Brian Ortega - Chief Complaint Lumbar surgery - History of Present Illness Very pleasant 62-year-old patient follows with Dr. Weber. Patient's had significant lower back pain for quite some time. Close to over 2 years. It radiates down to the right leg. Also patient has ,Urinary frequency from the same. Patient today underwent lumbar surgery by Dr. Ortega. Posterior she has pain in the operative site. Laying in bed. Tired. at the bedside. No nausea vomiting. No chest pain. Review of systems: GEN.: Tired EYES: None HEENT: None NECK: None RESPIRATORY: None CARDIOVASCULAR: None GASTROINTESTINAL: None GENITOURINARY: None MUSCULOSKELETAL: As above LYMPHATICS: None HEMATOLOGICAL: None PSYCHIATRY: None NEUROLOGICAL: None Past medical history to include: GERD, hyperlipidemia, herniated disc lower back and pain, Social history: No smoking no alcohol. . Physical examination: VITAL SIGNS: Afebrile, 68, 16, 129/63, 98% on 2 L GENERAL: BMI 23.9, laying in bed, tired. EYES: Pupils equal. Conjunctiva normal. HEENT: External appearance of nose and ears normal, oral cavity grossly normal. NECK: JVD not raised; masses not palpable. HEART: First and second heart sounds are normal; no edema. LUNGS: Respiratory rate normal; clear to auscultation. ABDOMEN: Soft, nontender, liver spleen not palpable, no masses palpable. PSYCH: Alert and oriented x3; mood and affect normal. MUSCULOSKELETAL:No Clubbing/cyanosis;muscles-grossly intact. Some of OA. Dressing over the operative site. NEUROLOGICAL: Cranial nerves grossly intact; no facial asymmetry, power and sensation grossly intact. LYMPHATICS: No lymph nodes palpable in the axilla and neck Assessment and plan: -Lower back pain from L4 S5 spondylolysis severe, L4-S1 stenosis, central and foraminal moderate to severe, lower extremity radiculopathy. Underwent surgery for the same by Dr. Ortega. Pain control -GERD PPI -Hyperlipidemia Lipitor 10 mg -Primary osteoarthritis Pain control. DOUGLAS stockings in place. Discussed with the patient and at the bedside. Question answered. Thank you Dr. Ortega Past Medical History Past Medical History: GERD/Reflux, Hyperlipidemia Additional Past Medical History / Comment(s): Work related injury resulting in herniated disc in back. History of Any Multi-Drug Resistant Organisms: None Reported Past Surgical History: Appendectomy, Section, Hysterectomy, Orthopedic Surgery, Tubal Ligation Additional Past Surgical History / Comment(s): Right finger surgery, radial tunnel syndrome right arm, pain clinic procedure. COLONOSCOPY, LYMPH NODE REMOVED UNDER LYMPH NODE Past Anesthesia/Blood Transfusion Reactions: Postoperative Nausea & Vomiting (PONV) Smoking Status: Never smoker - Past Family History Mother Family Medical History: No Reported History Medications and Allergies Home Medications Medication Instructions Recorded Confirmed Type Ibuprofen [Motrin] 600 mg PO Q8HR PRN #20 tab 06/16/20 12/13/22 Rx Atorvastatin [Lipitor] 10 mg PO HS 11/09/21 12/09/22 History traMADol HCL 50 mg PO HS PRN 11/09/21 12/13/22 History Magnesium 500 mg PO DAILY 12/21/21 12/09/22 History Acetaminophen [Tylenol Extra 1,000 mg PO BID 12/09/22 12/09/22 History Strength] Cetirizine HCl [Zyrtec] 10 mg PO DAILY 12/09/22 12/09/22 History Omeprazole 20 mg PO DAILY 12/09/22 12/09/22 History Allergies Allergy/AdvReac Type Severity Reaction Status Date / Time bacitracin Allergy Swelling Verified 12/13/22 12:25 [From Neosporin ([id number])] cephalexin [From Keflex] Allergy Rash/Hives Verified 12/13/22 12:25 neomycin Allergy Swelling Verified 12/13/22 12:25 [From Neosporin ([id number])] polymyxin B Allergy Swelling Verified 12/13/22 12:25 [From Neosporin ([id number])] Physical Exam Vitals: Vital Signs Temp Pulse Pulse Resp BP BP Pulse Ox 12/13/22 19:30 68 16 129/63 98 12/13/22 19:15 57 L 17 148/79 97 12/13/22 19:00 69 16 131/69 98 12/13/22 18:45 54 L 14 140/69 100 12/13/22 18:30 56 L 18 129/69 100 12/13/22 18:15 97.3 F L 58 L 16 133/64 100 09/12/23 12:26 97.7 F 85 20 145/80 97 Intake and Output 12/13/22 12/13/22 12/13/22 06:59 14:59 22:59 Intake Total 1400 450 Output Total 345 Balance 1400 105 Intake: IV 1400 450 Output: Urine 195 Estimated Blood Loss 150 Other: Weight 61.1 kg
[2022-12-14] MEDS: HYDROmorphone 1 MG/ML 1 ML SYRINGE IVP PRN ×2 (01:09→06:15)
[2022-12-14] MEDS: CYCLOBENZAPRINE 5 MG TAB PO PRN ×2 (01:09→15:09)
[2022-12-14] MEDS: ONDANSETRON 4 MG/2 ML VIAL IVP PRN ×2 (06:19→16:46)
[2022-12-14] MEDS: SENNOSIDES-DOCUSATE SODIUM 1 EACH TAB PO SCH (07:48)
[2022-12-14] MEDS ORDERED: PROCHLORPERAZINE INJ 10 MG/2 ML VIAL IVP PRN (08:08)
--- NOTE | 2022-12-14 08:46 | P.PN ---
Subjective Progress Note Date: 12/14/22 Principal diagnosis: 1. L4-S1 spondylosis with stenosis 2. Grade I spondylolisthesis of L4 on L5 and L5 on S1 3. Lower extremity radiculopathy 4. Low back pain Patient seen and examined this morning. Patient is resting comfortably in bed. Surgical incision to the lumbar spine, dressing is clean dry and intact with Hemovac present; 0 mL output overnight. She does report that she had nausea throughout the night. Medications have been adjusted. She does state that she has had postop nausea from previous surgeries. Patient reports her pain is managed on current regimen. She has been ambulatory with an room, tolerated activity well. Informed patient that physical therapy will be in to work with her today. Prescription for LSO brace has been placed in chart. Continue to encourage use of incentive spirometer. No acute events overnight. Objective - Vital Signs Vital signs: Vital Signs Temp 98.2 F 12/14/22 07:00 Pulse 83 12/14/22 07:00 Resp 16 12/14/22 07:00 BP 155/77 12/14/22 07:00 Pulse Ox 94 L 12/14/22 07:00 FiO2 Intake & Output 12/13/22 12/14/22 12/14/22 18:59 06:59 18:59 Intake Total 1400 450 Output Total 315 580 Balance 1085 -130 Weight 61.1 kg 61.1 kg Intake: IV 1400 450 Output: Urine 165 580 Uretheral (Yi) 250 Estimated Blood Loss 150 Other: Voiding Method Indwelling Catheter - Exam Inspection: Surgical incision to the lumbar spine, dressing is clean dry and intact. Hemovac is present with 0 mL output overnight Sensation: Sensation is equal, symmetric, bilaterally intact throughout the upper and lower extremities Palpation: Nontender to palpation throughout bilateral upper and lower extremities and throughout spine exam Range of motion: Patient does have full range of motion bilateral upper on exam and lower extremities are limited due to pain and stiffness due to surgical procedure. Motor: 5/5 in all major motor groups in the bilateral upper and 4/5 lower extremities Special tests: Negative Homans bilaterally. Negative Lady bilaterally. Negative clonus bilaterally. Neurovascular: Radial pulse intact, 2+ bilaterally. Cap refill under 3 seconds in digits upper extremities. Assessment and Plan Assessment: Postop day 1: L4-S1 decompression and fusion 1. L4-S1 spondylosis with stenosis 2. Grade I spondylolisthesis of L4 on L5 and L5 on S1 3. Lower extremity radiculopathy 4. Low back pain Plan: -Appreciate provider relations consultant and team management. -Activity: Ambulate QID, OOB all meals, up and about, limit lifting bending twisting to less than 5 lbs. Use walker or cane if needed for stability. -Daily PT/OT, increase ambulation strength and balance. -LSO Brace when up and about, not needed in bed or chair -Prescription for LSO brace has been placed in chart. -Pain control: Adequate at this time -Meds: reviewed -GI ppx: senna, Miralax -DVT PPX: OK to restart Heparin tonight -Hygiene: Shower today. Maintain dressing clean and dry. Meticulous cleaning after BMs away from the incision site -Drains: Maintain for now. Continue to monitor and record output q shift. -Encourage IS 10x/hr -Dispo: Anticipate discharge home with homecare in the next 48-72 hours *I reviewed and discussed this case with my attending Dr. Ortega, whom has reviewed this chart and films and is in agreement with assessment and plan of care as outlined above. I have personally seen and examined the patient, performed the documentation and the assessment and plan as written. Number of minutes spent on the visit: 20m.
[2022-12-14] MEDS: MORPHINE SULFATE 4 MG/ML SYRINGE IVP PRN ×3 (08:55→16:30)
--- NOTE | 2022-12-14 09:33 | CT ---
EXAMINATION TYPE: CT lumbar spine wo con CT DLP: 961 mGycm, Automated exposure control for dose reduction was used. DATE OF EXAM: 12/13/2022 11:58 PM COMPARISON: 09/08/2021. CLINICAL INDICATION:Female, 62 years old with history of L4-S1 PLIF; [facility], TECHNIQUE: Multiple axial images were obtained from the midportion of T11 through the sacroiliac gianni nts. Soft tissue and bone windows in coronal and sagittal planes were obtained and reviewed. Contrast used: none. Oral contrast used: none. FINDINGS: Postsurgical changes to the lumbar spine with fixation hardware at L4, L5 and S1. Discectomy at L4-L5 and L5-S1. Hardware limits evaluation at these levels. Hardware appears intact. No evidence of fract ure. Postsurgical changes in the soft tissues with foci of gas present. Drainage catheter with tubing in t he surgical bed. Posterior back skin sue are present. IMPRESSION: Postsurgical changes without evidence of immediate post operative complication.
[2022-12-14] MEDS: HYDROcodone/APAP 10-325MG 1 EACH TAB PO PRN ×2 (10:31→15:09)
[2022-12-14 11:02] LABS: Basophils # (A) 0.03 X 10*3/uL (0.00-0.10); Basophils % (A) 0.2 %; Eosinophils # (A) 0 X 10*3/uL (0.04-0.35); Eosinophils % (A) 0 %; HCT 34.9 % (37.2-46.3); HGB 11.4 d/dL (12.0-15.0); Lymphocytes # (A) 0.64 X 10*3/uL (0.90-5.00); Lymphocytes % (A) 4.4 %; MCH 29.9 pg (27.0-32.0); MCHC 32.7 d/dL (32.0-37.0); MCV 91.6 FL (80.0-97.0); Mean Platelet Volume 9.8 FL (9.5-12.2); Monocytes % (A) 6.2 %; NRBC Per 100 WBC 0 X 10*3/uL (0.00-0.01); Neutrophils # (A) 12.85 X 10*3/uL (1.80-7.70); Neutrophils % (A) 88.6 %; Platelet Count 219 X 10*3/uL (140-440); RBC 3.81 X 10*6/uL (4.10-5.20); RDW 13.1 % (11.5-14.5)
[2022-12-14 11:40] LABS: Blood Urea Nitrogen 9.3 mg/dL (9.0-27.0); Calcium 9.4 mg/dL (8.7-10.3); Carbon Dioxide 24.3 mmol/L (21.6-31.8); Chloride 104 mmol/L (96-109); Glucose 119 mg/dL (70-110); Potassium 3.8 mmol/L (3.5-5.5); Sodium 137 mmol/L (135-145)
--- NOTE | 2022-12-14 15:45 | P.PN ---
Progress Note - Text Progress Note Date: 12/14/22 - Chief Complaint Lumbar surgery - History of Present Illness Very pleasant 62-year-old patient follows with Dr. Weber. Patient's had significant lower back pain for quite some time. Close to over 2 years. It radiates down to the right leg. Also patient has ,Urinary frequency from the same. Patient today underwent lumbar surgery by Dr. Ortega. Posterior she has pain in the operative site. Laying in bed. Tired. at the bedside. No nausea vomiting. No chest pain. December 14: Patient having significant pain at the operative site. Has a Hemovac in place. Patient did get up to go to the bathroom. Yi catheter r emoved. Nausea. Back in bed. Active Medications Hydrocodone Bitart/Acetaminophen (Hydrocodone/Apap 5-325mg 1 Each Tab) 1 each PO Q4HR PRN PRN Reason: Pain Scale 4 - 6 Hydrocodone Bitart/Acetaminophen (Hydrocodone/Apap 10-325mg 1 Each Tab) 1 each PO Q6H PRN PRN Reason: Pain Scale 7 - 10 Last Admin: 12/14/22 15:09 Dose: 1 each Bisacodyl (Bisacodyl 10 Mg Supp) 10 mg RECTAL DAILY PRN PRN Reason: Constipation Cyclobenzaprine HCl (Cyclobenzaprine 5 Mg Tab) 5 mg PO TID PRN PRN Reason: Muscle Spasm Last Admin: 12/14/22 15:09 Dose: 5 mg Heparin Sodium (Porcine) (Heparin Sodium,Porcine 5,000 Unit/Ml 1 Ml Vial) 5,000 unit SQ Q12HR [facility] Lactated Ringer's (Lactated Ringers) 1,000 mls @ 20 mls/hr IV .Q24H [facility] Stop: 01/12/23 12:12 Last Admin: 12/13/22 14:53 Dose: 200 mls Magnesium Hydroxide (Magnesium Hydroxide 2,400 Mg/30 Ml Cup) 2,400 mg PO DAILY PRN PRN Reason: Constipation Morphine Sulfate (Morphine Sulfate 4 Mg/Ml Syringe) 4 mg IVP Q4HR PRN PRN Reason: Pain Last Admin: 12/14/22 12:31 Dose: 4 mg Ondansetron HCl (Ondansetron 4 Mg/2 Ml Vial) 4 mg IVP Q6HR PRN PRN Reason: Nausea And Vomiting Last Admin: 12/14/22 06:19 Dose: 4 mg Prochlorperazine Edisylate (Prochlorperazine Inj 10 Mg/2 Ml Vial) 5 mg IVP Q4HR PRN PRN Reason: Nausea And Vomiting Senna/Docusate Sodium (Sennosides-Docusate Sodium 1 Each Tab) 2 each PO DAILY [facility]USAN Last Admin: 12/14/22 07:48 Dose: 2 each Past medical history to include: GERD, hyperlipidemia, herniated disc lower back and pain, Social history: No smoking no alcohol. . Physical examination: VITAL SIGNS: 98.6, 92, 16, 154/78, 93% room air GENERAL: BMI 23.9, laying in bed, tired. EYES: Pupils equal. Conjunctiva normal. HEENT: External appearance of nose and ears normal, oral cavity grossly normal. NECK: JVD not raised; masses not palpable. HEART: First and second heart sounds are normal; no edema. LUNGS: Respiratory rate normal; clear to auscultation. ABDOMEN: Soft, nontender, liver spleen not palpable, no masses palpable. PSYCH: Alert and oriented x3; mood and affect normal. MUSCULOSKELETAL:No Clubbing/cyanosis;muscles-grossly intact. Some of OA. Dressing over the operative site. Hemovac INVESTIGATIONS, reviewed in the clinical context: December 14: White count 14.5 hemoglobin 11.4 platelets 219 potassium 3.8 creatinine 0.5 Assessment and plan: -Lower back pain from L4 S5 spondylolysis severe, L4-S1 stenosis, central and foraminal moderate to severe, lower extremity radiculopathy. Hemovac Underwent surgery for the same by Dr. Ortega. Pain control -Probable acute blood loss anemia as expected from surgery. IV Ferrlecit 2. Do not have a baseline hemoglobin. -GERD PPI -Hyperlipidemia Lipitor 10 mg -Primary osteoarthritis Pain control. IV Ferrlecit. Up in chair as tolerated. Thank you Dr. Ortega Past Medical History Past Medical History: GERD/Reflux, Hyperlipidemia Additional Past Medical History / Comment(s): Work related injury resulting in herniated disc in back. History of Any Multi-Drug Resistant Organisms: None Reported Past Surgical History: Appendectomy, Section, Hysterectomy, Orthopedic Surgery, Tubal Ligation Additional Past Surgical History / Comment(s): Right finger surgery, radial tunnel syndrome right arm, pain clinic procedure. COLONOSCOPY, LYMPH NODE REMOVED UNDER LYMPH NODE Past Anesthesia/Blood Transfusion Reactions: Postoperative Nausea & Vomiting (PONV) Smoking Status: Never smoker - Past Family History Mother Family Medical History: No Reported History Medications and Allergies Home Medications Medication Instructions Recorded Confirmed Type Ibuprofen [Motrin] 600 mg PO Q8HR PRN #20 tab 06/16/20 12/13/22 Rx Atorvastatin [Lipitor] 10 mg PO HS 11/09/21 12/09/22 History traMADol HCL 50 mg PO HS PRN 11/09/21 12/13/22 History Magnesium 500 mg PO DAILY 12/21/21 12/09/22 History Acetaminophen [Tylenol Extra 1,000 mg PO BID 12/09/22 12/09/22 History Strength] Cetirizine HCl [Zyrtec] 10 mg PO DAILY 12/09/22 12/09/22 History Omeprazole 20 mg PO DAILY 12/09/22 12/09/22 History Allergies Allergy/AdvReac Type Severity Reaction Status Date / Time bacitracin Allergy Swelling Verified 12/13/22 12:25 [From Neosporin ([id number])] cephalexin [From Keflex] Allergy Rash/Hives Verified 12/13/22 12:25 neomycin Allergy Swelling Verified 12/13/22 12:25 [From Neosporin ([id number])] polymyxin B Allergy Swelling Verified 12/13/22 12:25 [From Neosporin ([id number])]
[2022-12-14] MEDS: SODIUM FERRIC GLUCONAT-SUCROSE 125 MG in SODIUM CHLORIDE 0.9% 100 ML IVPB SCH (16:31)
[2022-12-14] MEDS ORDERED: HYDROcodone/APAP 10-325MG 1 EACH TAB PO PRN (16:43)
[2022-12-14] MEDS: HYDROcodone/APAP 10-325MG 1 EACH TAB PO SCH ×2 (17:31→21:08)
[2022-12-14] MEDS: HEPARIN SODIUM,PORCINE 5,000 UNIT/ML 1 ML VIAL SQ SCH (21:08)
[2022-12-15] MEDS: MORPHINE SULFATE 4 MG/ML SYRINGE IVP PRN ×3 (00:33→20:26)
[2022-12-15] MEDS: HYDROcodone/APAP 10-325MG 1 EACH TAB PO SCH ×6 (02:46→22:48)
[2022-12-15] MEDS: CYCLOBENZAPRINE 5 MG TAB PO PRN ×2 (04:34→20:26)
[2022-12-15 07:40] LABS: HGB 11.7 gm/dL (11.4-16.0); MCH 30.3 pg (25.0-35.0); MCHC 32.6 g/dL (31.0-37.0); MCV 92.9 fL (80.0-100.0); Mean Platelet Volume 8.3; Platelet Count 201 k/uL (150-450); RBC 3.87 m/uL (3.80-5.40); RDW 13.1 % (11.5-15.5); WBC 14.9 k/uL (3.8-10.6)
[2022-12-15 07:43] LABS: African American GFR (CKD) >90 (>60 ml/min/1.73 sqM); Anion Gap 4 mmol/L; Blood Urea Nitrogen 5 mg/dL (7-17); Calcium 9.7 mg/dL (8.4-10.2); Carbon Dioxide 29 mmol/L (22-30); Chloride 99 mmol/L (98-107); Glucose 114 mg/dL (74-99); Non-African American GFR(CKD) >90 (>60 ml/min/1.73 sqM); Potassium 3.9 mmol/L (3.5-5.1); Sodium 132 mmol/L (137-145)
--- NOTE | 2022-12-15 07:59 | P.PN ---
Subjective Progress Note Date: 12/15/22 Principal diagnosis: 1. L4-S1 spondylosis with stenosis 2. Grade I spondylolisthesis of L4 on L5 and L5 on S1 3. Lower extremity radiculopathy 4. Low back pain Patient seen and examined this morning. Patient is resting comfortably in bed. Surgical incision to the lumbar spine, edges are well approximated with sue intact. Hemovac was accidentally pulled out yesterday evening. Dressing changed this morning 12/15/22. Patient reports her pain is managed on current regimen and nausea has subsided. Patient was assisted with placing LSO brace and ambulating to restroom. She is min assist with positioning her self to edge of bed, standby assist with ambulation with walker. Pateint is urinating without difficulty. She states she is passing gas, no BM. Continue to encourage use of incentive spirometer. No acute events overnight. Objective - Vital Signs Vital signs: Vital Signs Temp 98.8 F 12/15/22 00:28 Pulse 75 12/15/22 00:28 Resp 18 12/15/22 00:28 BP 118/64 12/15/22 00:28 Pulse Ox 91 L 12/15/22 00:28 FiO2 Intake & Output 12/14/22 12/15/22 12/15/22 18:59 06:59 18:59 Other: Voiding Method Indwelling Catheter Toilet # Voids 2 3 - Exam Inspection: Surgical incision to the lumbar spine, edges are well approximated with sue intact. No active drainage. Dressing changed this morning 12/15/22. Sensation: Sensation is equal, symmetric, bilaterally intact throughout the upper and lower extremities Palpation: Nontender to palpation throughout bilateral upper and lower extremities and throughout spine exam Range of motion: Patient does have full range of motion bilateral upper on exam and lower extremities are limited due to pain and stiffness due to surgical procedure. Motor: 5/5 in all major motor groups in the bilateral upper and 4/5 lower extremities Special tests: Negative Homans bilaterally. Negative Lady bilaterally. Negative clonus bilaterally. Neurovascular: Radial pulse intact, 2+ bilaterally. Cap refill under 3 seconds in digits upper extremities. - Labs CBC & Chem 7: 12/15/22 06:34 12/15/22 06:34 Labs: Abnormal Lab Results - Last 24 Hours (Table) 12/14/22 12/14/22 Range/Units 06:53 06:53 WBC 14.50 H (4.50-10.00) X 10*3/uL RBC 3.81 L (4.10-5.20) X 10*6/uL Hgb 11.4 L (12.0-15.0) d/dL Hct 34.9 L (37.2-46.3) % Neutrophils # 12.85 H (1.80-7.70) X 10*3/uL Lymphocytes # 0.64 L (0.90-5.00) X 10*3/uL Eosinophils # 0 L (0.04-0.35) X 10*3/uL Creatinine 0.5 L (0.6-1.5) mg/dL Glucose 119 H (70-110) mg/dL Assessment and Plan Assessment: Postop day 2: L4-S1 decompression and fusion 1. L4-S1 spondylosis with stenosis 2. Grade I spondylolisthesis of L4 on L5 and L5 on S1 3. Lower extremity radiculopathy 4. Low back pain Plan: -Appreciate employee relations consultant and team management. -Activity: Ambulate QID, OOB all meals, up and about, limit lifting bending twisting to less than 5 lbs. Use walker or cane if needed for stability. -Daily PT/OT, increase ambulation strength and balance. -LSO Brace when up and about, not needed in bed or chair -Pain control: Adequate at this time -Meds: reviewed -GI ppx: senna, Miralax -DVT PPX: Heparin -Hygiene: Shower today. Maintain dressing clean and dry. Meticulous cleaning after BMs away from the incision site -Encourage IS 10x/hr -Dispo: Anticipate discharge home with homecare tomorrow 12/16/22. *I reviewed and discussed this case with my attending Dr. Ortega, whom has reviewed this chart and films and is in agreement with assessment and plan of care as outlined above. I have personally seen and examined the patient, performed the documentation and the assessment and plan as written. Number of minutes spent on the visit: 20m.
[2022-12-15] MEDS: SENNOSIDES-DOCUSATE SODIUM 1 EACH TAB PO SCH (10:20)
[2022-12-15] MEDS: HEPARIN SODIUM,PORCINE 5,000 UNIT/ML 1 ML VIAL SQ SCH ×2 (10:22→20:26)
[2022-12-15] MEDS: SODIUM FERRIC GLUCONAT-SUCROSE 125 MG in SODIUM CHLORIDE 0.9% 100 ML IVPB SCH (11:47)
--- NOTE | 2022-12-15 15:23 | P.PN ---
Progress Note - Text Progress Note Date: 12/15/22 - Chief Complaint Lumbar surgery - History of Present Illness Very pleasant 62-year-old patient follows with Dr. Weber. Patient's had significant lower back pain for quite some time. Close to over 2 years. It radiates down to the right leg. Also patient has ,Urinary frequency from the same. Patient today underwent lumbar surgery by Dr. Ortega. Posterior she has pain in the operative site. Laying in bed. Tired. at the bedside. No nausea vomiting. No chest pain. December 14: Patient having significant pain at the operative site. Has a Hemovac in place. Patient did get up to go to the bathroom. Yi catheter r emoved. Nausea. Back in bed. December 15: Has a brace. Oral intake better about 75%. Pain better. No nausea vomiting. No BM Active Medications Hydrocodone Bitart/Acetaminophen (Hydrocodone/Apap 5-325mg 1 Each Tab) 1 each PO Q4HR PRN PRN Reason: Pain Scale 4 - 6 Hydrocodone Bitart/Acetaminophen (Hydrocodone/Apap 10-325mg 1 Each Tab) 1 each PO Q4H [facility] Last Admin: 12/15/22 14:00 Dose: 1 each Bisacodyl (Bisacodyl 10 Mg Supp) 10 mg RECTAL DAILY PRN PRN Reason: Constipation Cyclobenzaprine HCl (Cyclobenzaprine 5 Mg Tab) 5 mg PO TID PRN PRN Reason: Muscle Spasm Last Admin: 12/15/22 04:34 Dose: 5 mg Heparin Sodium (Porcine) (Heparin Sodium,Porcine 5,000 Unit/Ml 1 Ml Vial) 5,000 unit SQ Q12HR [facility] Last Admin: 12/15/22 10:22 Dose: 5,000 unit Lactated Ringer's (Lactated Ringers) 1,000 mls @ 20 mls/hr IV .Q24H [facility] Stop: 01/12/23 12:12 Last Admin: 12/13/22 14:53 Dose: 200 mls Magnesium Hydroxide (Magnesium Hydroxide 2,400 Mg/30 Ml Cup) 2,400 mg PO DAILY PRN PRN Reason: Constipation Morphine Sulfate (Morphine Sulfate 4 Mg/Ml Syringe) 4 mg IVP Q4HR PRN PRN Reason: Pain Last Admin: 12/15/22 00:33 Dose: 4 mg Ondansetron HCl (Ondansetron 4 Mg/2 Ml Vial) 4 mg IVP Q6HR PRN PRN Reason: Nausea And Vomiting Last Admin: 12/14/22 16:46 Dose: 4 mg Prochlorperazine Edisylate (Prochlorperazine Inj 10 Mg/2 Ml Vial) 5 mg IVP Q4HR PRN PRN Reason: Nausea And Vomiting Senna/Docusate Sodium (Sennosides-Docusate Sodium 1 Each Tab) 2 each PO DAILY [facility]USAN Last Admin: 12/15/22 10:20 Dose: 2 each Past medical history to include: GERD, hyperlipidemia, herniated disc lower back and pain, Social history: No smoking no alcohol. . Physical examination: VITAL SIGNS: 97.7, 73, 17, 122/77 GENERAL: In a chair. wearing a brace EYES: Pupils equal. Conjunctiva normal. HEENT: External appearance of nose and ears normal, oral cavity grossly normal. NECK: JVD not raised; masses not palpable. HEART: First and second heart sounds are normal; no edema. LUNGS: Respiratory rate normal; clear to auscultation. ABDOMEN: Soft, nontender, liver spleen not palpable, no masses palpable. PSYCH: Alert and oriented x3; mood and affect normal. MUSCULOSKELETAL:No Clubbing/cyanosis;muscles-grossly intact. Some of OA. Dressing over the operative site. INVESTIGATIONS, reviewed in the clinical context: December 15: WBC 1409 hemoglobin 11.7 potassium 3.9 creatinine 0.63 December 14: White count 14.5 hemoglobin 11.4 platelets 219 potassium 3.8 creatinine 0.5 Assessment and plan: -Lower back pain from L4 S5 spondylolysis severe, L4-S1 stenosis, central and foraminal moderate to severe, lower extremity radiculopathy. -Anjali Underwent surgery for the same by Dr. Ortega. Pain control -Probable acute blood loss anemia as expected from surgery. IV Ferrlecit 2. Do not have a baseline hemoglobin. -GERD PPI -Hyperlipidemia Lipitor 10 mg -Primary osteoarthritis Doing better.. Thank you Dr. Ortega Past Medical History Past Medical History: GERD/Reflux, Hyperlipidemia Additional Past Medical History / Comment(s): Work related injury resulting in herniated disc in back. History of Any Multi-Drug Resistant Organisms: None Reported Past Surgical History: Appendectomy, Section, Hysterectomy, Orthopedic Surgery, Tubal Ligation Additional Past Surgical History / Comment(s): Right finger surgery, radial tunnel syndrome right arm, pain clinic procedure. COLONOSCOPY, LYMPH NODE REMOVED UNDER LYMPH NODE Past Anesthesia/Blood Transfusion Reactions: Postoperative Nausea & Vomiting (PONV) Smoking Status: Never smoker - Past Family History Mother Family Medical History: No Reported History Medications and Allergies Home Medications Medication Instructions Recorded Confirmed Type Ibuprofen [Motrin] 600 mg PO Q8HR PRN #20 tab 06/16/20 12/13/22 Rx Atorvastatin [Lipitor] 10 mg PO HS 11/09/21 12/09/22 History traMADol HCL 50 mg PO HS PRN 11/09/21 12/13/22 History Magnesium 500 mg PO DAILY 12/21/21 12/09/22 History Acetaminophen [Tylenol Extra 1,000 mg PO BID 12/09/22 12/09/22 History Strength] Cetirizine HCl [Zyrtec] 10 mg PO DAILY 12/09/22 12/09/22 History Omeprazole 20 mg PO DAILY 12/09/22 12/09/22 History Allergies Allergy/AdvReac Type Severity Reaction Status Date / Time bacitracin Allergy Swelling Verified 12/13/22 12:25 [From Neosporin ([id number])] cephalexin [From Keflex] Allergy Rash/Hives Verified 12/13/22 12:25 neomycin Allergy Swelling Verified 12/13/22 12:25 [From Neosporin ([id number])] polymyxin B Allergy Swelling Verified 12/13/22 12:25 [From Neosporin ([id number])]
[2022-12-15] MEDS: LACTATED RINGERS 1,000 ML IV SCH (22:48)
[2022-12-15] MEDS: HYDROcodone/APAP 5-325MG 1 EACH TAB PO PRN (23:24)
[2022-12-16] MEDS: HYDROcodone/APAP 10-325MG 1 EACH TAB PO SCH ×3 (01:26→11:56)
[2022-12-16 02:37] VITALS: RESP 16
--- NOTE | 2022-12-16 07:16 | P.PN ---
Subjective Progress Note Date: 12/16/22 Principal diagnosis: 1. L4-S1 spondylosis with stenosis 2. Grade I spondylolisthesis of L4 on L5 and L5 on S1 3. Lower extremity radiculopathy 4. Low back pain Patient seen and examined this morning. Patient is sitting up in the chair. Surgical incision to the lumbar spine, dressing is CDI. Patient reports her pain is managed on current regimen. She has been ambulating within room with walker. Tolerating activity well. Patient reports improvement in her lower extremities since the procedure. She does report that she has some stairs to enter her home and that PT is going to work with her today performing stairs. Patient states she feels comfortable going home today with homecare. Discharge instructions have been reviewed. No acute concerns. Objective - Vital Signs Vital signs: Vital Signs Temp 98.4 F 12/16/22 02:00 Pulse 79 12/16/22 02:00 Resp 16 12/16/22 02:00 BP 100/69 12/16/22 02:00 Pulse Ox 95 12/16/22 02:00 FiO2 Intake & Output 12/15/22 12/16/22 12/16/22 18:59 06:59 18:59 Intake Total 480 Balance 480 Intake: Oral 480 Other: Voiding Method Toilet Toilet # Voids 4 3 - Exam Inspection: Surgical incision to the lumbar spine, Dressing is CDI. Sensation: Sensation is equal, symmetric, bilaterally intact throughout the u pper and lower extremities Palpation: Nontender to palpation throughout bilateral upper and lower e xtremities and throughout spine exam Range of motion: Patient does have full range of motion bilateral upper on exam and lower extremities are limited due to pain and stiffness due to surgical procedure. Motor: 5/5 in all major motor groups in the bilateral upper and 4/5 lower extremities Special tests: Negative Homans bilaterally. Negative Lady bilaterally. Negative clonus bilaterally. Neurovascular: Radial pulse intact, 2+ bilaterally. Cap refill under 3 seconds in digits upper extremities. - Labs CBC & Chem 7: 12/15/22 06:34 12/15/22 06:34 Labs: Abnormal Lab Results - Last 24 Hours (Table) 12/15/22 12/15/22 Range/Units 06:34 06:34 WBC 14.9 H (3.8-10.6) k/uL Sodium 132 L (137-145) mmol/L BUN 5 L (7-17) mg/dL Glucose 114 H (74-99) mg/dL Assessment and Plan Assessment: Postop day 3: L4-S1 decompression and fusion 1. L4-S1 spondylosis with stenosis 2. Grade I spondylolisthesis of L4 on L5 and L5 on S1 3. Lower extremity radiculopathy 4. Low back pain Plan: -Appreciate clinical services consultant and team management. -Activity: Ambulate QID, OOB all meals, up and about, limit lifting bending twisting to less than 5 lbs. Use walker or cane if needed for stability. -Daily PT/OT, increase ambulation strength and balance. -LSO Brace when up and about, not needed in bed or chair -Pain control: Adequate at this time -Meds: reviewed -GI ppx: senna, Miralax -DVT PPX: Heparin -Hygiene: Shower today. Maintain dressing clean and dry. Meticulous cleaning after BMs away from the incision site -Encourage IS 10x/hr -Dispo: Anticipate discharge home with homecare today after PT *I reviewed and discussed this case with my attending Dr. Ortega, whom has reviewed this chart and films and is in agreement with assessment and plan of care as outlined above. I have personally seen and examined the patient, performed the documentation and the assessment and plan as written. Number of minutes spent on the visit: 20m.
[2022-12-16] MEDS: CYCLOBENZAPRINE 5 MG TAB PO PRN (09:06)
[2022-12-16] MEDS: HEPARIN SODIUM,PORCINE 5,000 UNIT/ML 1 ML VIAL SQ SCH (09:44)
[2022-12-16] MEDS: SENNOSIDES-DOCUSATE SODIUM 1 EACH TAB PO SCH (09:45)
[2022-12-16] MEDS: MORPHINE SULFATE 4 MG/ML SYRINGE IVP PRN (09:49)
[2022-12-16] MEDS: HYDROcodone/APAP 5-325MG 1 EACH TAB PO PRN (10:36)
[2022-12-16 15:30] VITALS: BP 115/69; PULSE 89; TEMP 98.3
--- NOTE | 2022-12-16 17:21 | P.PN ---
Progress Note - Text Progress Note Date: 12/16/22 - Chief Complaint Lumbar surgery - History of Present Illness Very pleasant 62-year-old patient follows with Dr. Weber. Patient's had significant lower back pain for quite some time. Close to over 2 years. It radiates down to the right leg. Also patient has ,Urinary frequency from the same. Patient today underwent lumbar surgery by Dr. Ortega. Posterior she has pain in the operative site. Laying in bed. Tired. at the bedside. No nausea vomiting. No chest pain. December 14: Patient having significant pain at the operative site. Has a Hemovac in place. Patient did get up to go to the bathroom. Yi catheter r emoved. Nausea. Back in bed. December 15: Has a brace. Oral intake better about 75%. Pain better. No nausea vomiting. No BM December 16: Discussed with patient has been at the bedside. Still having significant pain in his lower back. Questions answered. Also also patient used a heating pad. Has been up to the bathroom. Has been given a brace Past medical history to include: GERD, hyperlipidemia, herniated disc lower back and pain, Social history: No smoking no alcohol. . Physical examination: VITAL SIGNS: 98.3, 89, 16, 1.5 x 6-9, 92% room air GENERAL: Reclining in bed EYES: Pupils equal. Conjunctiva normal. HEENT: External appearance of nose and ears normal, oral cavity grossly normal. NECK: JVD not raised; masses not palpable. HEART: First and second heart sounds are normal; no edema. LUNGS: Respiratory rate normal; clear to auscultation. ABDOMEN: Soft, nontender, liver spleen not palpable, no masses palpable. PSYCH: Alert and oriented x3; mood and affect normal. MUSCULOSKELETAL:No Clubbing/cyanosis;muscles-grossly intact. Some of OA. Dressing over the operative site. INVESTIGATIONS, reviewed in the clinical context: December 15: WBC 1409 hemoglobin 11.7 potassium 3.9 creatinine 0.63 December 14: White count 14.5 hemoglobin 11.4 platelets 219 potassium 3.8 creatinine 0.5 Assessment and plan: -Lower back pain from L4 S5 spondylolysis severe, L4-S1 stenosis, central and foraminal moderate to severe, lower extremity radiculopathy. -Brace Underwent surgery for the same by Dr. Ortega. Pain control -Probable acute blood loss anemia as expected from surgery. IV Ferrlecit 2. Do not have a baseline hemoglobin. -GERD PPI -Hyperlipidemia Lipitor 10 mg -Primary osteoarthritis Discussed with patient and . Questions answered. Thank you Dr. Ortega Past Medical History Past Medical History: GERD/Reflux, Hyperlipidemia Additional Past Medical History / Comment(s): Work related injury resulting in herniated disc in back. History of Any Multi-Drug Resistant Organisms: None Reported Past Surgical History: Appendectomy, Section, Hysterectomy, Orthopedic Surgery, Tubal Ligation Additional Past Surgical History / Comment(s): Right finger surgery, radial tu nnel syndrome right arm, pain clinic procedure. COLONOSCOPY, LYMPH NODE REMOVED UNDER LYMPH NODE Past Anesthesia/Blood Transfusion Reactions: Postoperative Nausea & Vomiting ( PONV) Smoking Status: Never smoker - Past Family History Mother Family Medical History: No Reported History
== END 2022-12-16 14:13 | disposition home health service (06) | DRG 454 ==
LOC: OR 11:53 → 4SSUR 18:01 → OR 18:02 → 4SSUR 18:02
PROVIDERS: ADMIT Orthopaedic Surgery; ATTEND Orthopaedic Surgery
PROC: 0SG0071 Fusion of Lumbar Vertebral Joint with Autologous Tissue Substitute, Posterior Approach, Posterior Column, Open Approach (ICD-10-PCS; 2022-12-13)
PROC: 0SG30AJ Fusion of Lumbosacral Joint with Interbody Fusion Device, Posterior Approach, Anterior Column, Open Approach (ICD-10-PCS; 2022-12-13)
PROC: 0SG3071 Fusion of Lumbosacral Joint with Autologous Tissue Substitute, Posterior Approach, Posterior Column, Open Approach (ICD-10-PCS; 2022-12-13)
PROC: 01NB0ZZ Release Lumbar Nerve, Open Approach (ICD-10-PCS; 2022-12-13)
PROC: 01NR0ZZ Release Sacral Nerve, Open Approach (ICD-10-PCS; 2022-12-13)
PROC: 0QB00ZZ Excision of Lumbar Vertebra, Open Approach (ICD-10-PCS; 2022-12-13)
PROC: 0QB10ZZ Excision of Sacrum, Open Approach (ICD-10-PCS; 2022-12-13)
PROC: 8E0WXBZ Computer Assisted Procedure of Trunk Region (ICD-10-PCS; 2022-12-13)
PROC: 0SG00AJ Fusion of Lumbar Vertebral Joint with Interbody Fusion Device, Posterior Approach, Anterior Column, Open Approach (ICD-10-PCS; principal; 2022-12-13 13:45)
DX: M43.16 Spondylolisthesis, lumbar region (principal); D62 Acute posthemorrhagic anemia; M47.27 Other spondylosis with radiculopathy, lumbosacral region; M47.26 Other spondylosis with radiculopathy, lumbar region; M48.061 Spinal stenosis, lumbar region without neurogenic claudication; M48.07 Spinal stenosis, lumbosacral region; G47.9 Sleep disorder, unspecified; M19.91 Primary osteoarthritis, unspecified site; K21.9 Gastro-esophageal reflux disease without esophagitis; E78.5 Hyperlipidemia, unspecified; M43.17 Spondylolisthesis, lumbosacral region; Z87.891 Personal history of nicotine dependence; S33.101 Dislocation of unspecified lumbar vertebra; Z79.899 Other long term (current) drug therapy; Z88.1 Allergy status to other antibiotic agents
CPT/HCPCS: 72100; 72131; 80048; 85025; 85027; 86850; 86900; 86901

== ENCOUNTER → 2023-08-24 | Outpatient (CLI) | payer MEDICARE, BC ==
[2023-08-24 14:28] LABS: HCT 43.5 % (37.2-46.3); HGB 13.8 g/dL (12.0-15.0); MCH 28.8 pg (27.0-32.0); MCHC 31.7 g/dL (32.0-37.0); MCV 90.8 FL (80.0-97.0); NRBC Per 100 WBC 0 X 10*3/uL (0.00-0.01); Platelet Count 303 X 10*3/uL (140-440); RBC 4.79 X 10*6/uL (4.10-5.20); RDW 13.5 % (11.5-14.5); WBC 7.55 X 10*3/uL (4.50-10.00)
[2023-08-24 14:29] LABS: Basophils # (A) 0.11 X 10*3/uL (0.00-0.10); Basophils % (A) 1.5 %; Eosinophils % (A) 1.3 %; Lymphocytes # (A) 2.05 X 10*3/uL (0.90-5.00); Lymphocytes % (A) 27.2 %; Monocytes # (A) 0.47 X 10*3/uL (0.20-1.00); Monocytes % (A) 6.2 %; Neutrophils % (A) 63.5 %
[2023-08-24 15:05] LABS: ALT 17 U/L (8-44); AST 19 U/L (13-35); Blood Urea Nitrogen 19.2 mg/dL (9.0-27.0); Calcium 10.4 mg/dL (8.7-10.3); Chloride 106 mmol/L (96-109); Chol/HDL Ratio 2.55 Ratio; Glucose 89 mg/dL (70-110); LDL Cholesterol,Calculated 90.7 mg/dL (0.0-131.0); Potassium 4.4 mmol/L (3.5-5.5); Sodium 142 mmol/L (135-145); VLDL Calculation 18.58 mg/dL (5.00-40.00)
== END | disposition home or self-care (01) ==
LOC: LABWHC1 06:53
PROVIDERS: ATTEND Family Medicine
DX: E78.00 Pure hypercholesterolemia, unspecified (principal); R73.03 Prediabetes
CPT/HCPCS: 36415; 80048; 80061; 83036; 84450; 84460; 85025